=== PATIENT | male | born 1940 | race Caucasian/White ===

== ENCOUNTER 2016-12-16 15:23 | Inpatient (IN) | payer MEDICARE, OTHER ==
--- NOTE | 2016-12-16 15:30 | EDM.PDOC ---
ED HPI GENERAL MEDICAL PROBLEM - General Chief Complaint: General Stated Complaint: AMB Time Seen by Provider: 12/16/16 15:28 Source of Information: Reports: Patient, EMS, Family (), Old records, RN, RN notes reviewed History Limitations: Reports: Physical impairment (very hard of hearing) - History of Present Illness INITIAL COMMENTS - FREE TEXT/NARRATIVE: Arrives by ambulance with most of the history given by due to patient's hearing impairment. Reports increased weakness, cough, and vertigo. Onset last evening worse today. Also urinary frequency but very small quantities of urine production. Unsure of fever. Location: Reports: chest Severity: severe - Related Data Allergies Allergy/AdvReac Type Severity Reaction Status Date / Time No Known Allergies Allergy Verified 12/16/16 15:31 Home Meds: Home Meds Albuterol/Ipratropium [DuoNeb 3.0-0.5 MG/3 ML] 3 ml INH TID 09/15/14 [History] Budesonide [Pulmicort] 2 ml INH BID 09/15/14 [History] Calcium Carbonate [Calcium] 600 mg PO DAILY 09/15/14 [History] Carbidopa/Levodopa [Carbidopa-Levodopa 25-100 Tab] 2 tab PO TID 09/15/14 [ History] Cholecalciferol (Vitamin D3) [Cholecalciferol] 1 tab PO DAILY 09/15/14 [History] Cyanocobalamin (Vitamin B-12) [Vitamin B-12] 1,000 mcg INJECT .MONTHLY 09/15/14 [History] Levothyroxine 150 mcg PO DAILY 09/15/14 [History] Metoprolol Succinate [Toprol Xl] 100 mg PO DAILY 09/15/14 [History] Multivitamin [Multivitamins] 1 tab PO DAILY 09/15/14 [History] Sertraline HCl 50 mg PO DAILY 09/15/14 [History] Tamsulosin HCl 0.4 mg PO BEDTIME 09/15/14 [History] Ursodiol 500 mg PO BID 09/15/14 [History] Aspirin 81 mg PO DAILY 06/17/15 [History] Montelukast [Singulair] 1 tab PO BEDTIME 05/21/16 [History] Past Medical History HEENT History: Reports: Impaired vision Other HEENT History: WEARS BILATERAL HEARING AIDS Cardiovascular History: Reports: Hypertension Respiratory History: Reports: COPD, Pneumonia, recurrent, SOB Other Respiratory History: CHRONIC COUGH; CHRONIC AIRWAY OBSTRUCTION; UPPER RESPIRATROY INFECTION Gastrointestinal History: Reports: Chronic constipation Genitourinary History: Reports: BPH, Prostate disorder, UTI, recurrent Other Genitourinary History: LOWER URINARY TRACT INFECTION Other Musculoskeletal History: CRUSH INJURY OF RIGHT FOOT; PLANTAR FASCIITIS Neurological History: Reports: Alzheimers disease, Parkinson's Other Neuro History: DIZZINESS Endocrine/Metabolic History: Reports: Hypothyroidism Other Endocrine/Metabolic History: HYPOTHYROIDISM Hematologic History: Reports: B12 deficiency - Infectious Disease History Infectious Disease History: Reports: Chicken pox, Measles, Mumps - Past Surgical History HEENT Surgical History: Reports: Cataract surgery Social & Family History - Family History Family Medical History: Noncontributory - Tobacco Use Smoking Status *Q: Never Smoker Years of Tobacco use: 40 Packs/Tins Daily: 1 Used Tobacco, but Quit: Yes Month Tobacco Last Used: february 2009 Second Hand Smoke Exposure: No - Caffeine Use Caffeine Use: Reports: Coffee, Soda - Recreational Drug Use Recreational Drug Use: No - Living Situation & Occupation Living situation: Reports: , with spouse Occupation: retired ED ROS GENERAL - Review of Systems Review Of Systems: ROS reveals no pertinent complaints other than HPI. ED EXAM, GENERAL - Physical Exam Exam: See Below Exam Limited By: Other (hearing impairment) General Appearance: other (chronically ill appearing) Eye Exam: bilateral eye: normal inspection Ears: other (hearing aides) Nose: other Throat/Mouth: Other (dryoral membranes.) Head: atraumatic, normocephalic Neck: normal inspection, supple, non-tender, full range of motion Cardiovascular: regular rate, rhythm (with occasional extra beat.), other ( decreased breath sounds at bilateral bases with scattered wheezes, course rhonchi at left base. ) GI/Abdominal: normal bowel sounds, soft, non tender, no organomegaly, no distention, no abnormal bruit, no mass (Male) Exam: Deferred Rectal (Males) Exam: Deferred Back Exam: normal inspection, full range of motion, NT Extremities: normal inspection, normal range of motion, non-tender, normal capillary refill, no pedal edema Neurological: other (chronic stable Parkinsons tremor, ataxia and generalized weakness. ) Psychiatric: normal affect, normal mood Skin Exam: Warm, Dry, Intact, Normal color, No rash EKG INTERPRETATION EKG Date: 12/16/16 Time: 15:59 Rhythm: other (sinus rhythm) Rate (beats/min): 78 [place]: normal P-wave: present (low amplitude P wave) QRS: other (RBBB and ventricular premature complex) ST-T: normal QT: normal Comparison: NA - no prior EKG Course - Vital Signs Last Recorded V/S: Last Vital Signs Temp 36.7 C 12/16/16 15:27 Pulse 76 12/16/16 15:27 Resp 20 12/16/16 15:27 BP 115/52 L 12/16/16 15:27 Pulse Ox 95 12/16/16 15:27 - Orders/Labs/Meds Orders: Active Orders 24 hr Category Date Time Status EKG 12 Lead [EKG Documentation Completion] [RC] STAT Care 12/16/16 16:10 Active Insert Moreira Catheter [Insert Urinary Catheter] [OM.PC] Care 12/16/16 17:30 Ordered Q24H Peripheral IV Care [RC] . DIRECTED Care 12/16/16 16:14 Active RT Aerosol Therapy [RC] ASDIRECTED Care 12/16/16 16:15 Active Urinary Catheter Assessment [RC] ASDIRECTED Care 12/16/16 17:16 Active CULTURE BLOOD [BC] Stat Lab 12/16/16 17:04 Ordered CULTURE BLOOD [BC] Stat Lab 12/16/16 17:04 Ordered LACTIC ACID [CHEM] Stat Lab 12/16/16 17:04 Ordered UA W/MICROSCOPIC [URIN] Stat Lab 12/16/16 16:11 Uncollected Levofloxacin/Dextrose 5%-Water [Levaquin in D5W 500 MG/ Med 12/16/16 17:04 Active 100 ML] 500 mg Premix Bag 1 bag IV ONETIME Sodium Chloride 0.9% [Saline Flush] Med 12/16/16 16:14 Active 10 ml FLUSH ASDIRECTED PRN Blood Culture x2 Reflex Set [OM.PC] Stat Oth 12/16/16 17:04 Ordered Peripheral IV Insertion Adult [OM.PC] Stat Oth 12/16/16 16:10 Ordered Medication Orders Levofloxacin/Dextrose 500 mg/ (Premix) 100 mls @ 100 mls/hr IV ONETIME ONE Stop: 12/16/16 18:03 Sodium Chloride (Saline Flush) 10 ml FLUSH ASDIRECTED PRN PRN Reason: Keep Vein Open Last Admin: 12/16/16 16:18 Dose: 10 ml Labs: Laboratory Tests 12/16/16 12/16/16 Range/Units 16:15 16:15 WBC 14.9 H (5.0-10.0) 10^3/uL RBC 4.24 L (4.6-6.2) 10^6/uL Hgb 11.5 L (14.0-18.0) g/dL Hct 35.2 L (40.0-54.0) % MCV 83.0 (80-100) fL MCH 27.1 (27.0-34.0) pg MCHC 32.7 L (33.0-35.0) g/dL Plt Count 185 (150-450) 10^3/uL Neut % (Auto) 86.2 H (42.2-75.2) % Lymph % (Auto) 5.4 L (20.5-50.1) % [place] % (Auto) 8.2 H (2-8) % Eos % (Auto) 0.0 L (1.0-3.0) % Baso % (Auto) 0.2 (0.0-1.0) % Sodium 135 (135-145) mmol/L Potassium 3.7 (3.6-5.0) mmol/L Chloride 103 (101-111) mmol/L Carbon Dioxide 23.0 (21.0-31.0) mmol/L Anion Gap 12.7 BUN 24 H (7-18) mg/dL Creatinine 1.0 (0.6-1.3) mg/dL Est Cr Clr Drug Dosing 59.67 mL/min Estimated GFR (MDRD) > 60 BUN/Creatinine Ratio 24.00 Glucose 97 (74-105) mg/dL Calcium 8.9 (8.4-10.2) mg/dl Total Bilirubin 1.2 H (0.2-1.0) mg/dL AST 31 (10-42) IU/L ALT 8 L (10-60) IU/L Alkaline Phosphatase 88 (42-121) IU/L Troponin I < 0.02 (0.00-0.02) ng/ml B-Natriuretic Peptide 186 H (0-100) pg/ml Total Protein 7.1 (6.7-8.2) g/dl Albumin 3.6 (3.2-5.5) g/dl Globulin 3.5 Albumin/Globulin Ratio 1.03 Meds: Medications Generic Name Dose Route Start Last Admin Trade Name Ramone PRN Reason Stop Dose Admin Levofloxacin/Dextrose 500 mg/ 100 mls @ 100 mls/hr 12/16/16 17:04 Premix IV 12/16/16 18:03 ONETIME ONE Sodium Chloride 10 ml 12/16/16 16:14 12/16/16 16:18 Saline Flush FLUSH 10 ml ASDIRECTED PRN Administration Keep Vein Open Discontinued Medications Generic Name Dose Route Start Last Admin Trade Name Freq PRN Reason Stop Dose Admin Albuterol/Ipratropium 3 ml 12/16/16 16:15 12/16/16 16:25 Duoneb 3.0-0.5 Mg/3 Ml NEB 12/16/16 16:16 3 ml ONETIME ONE Administration Sodium Chloride 1,000 mls @ 999 mls/hr 12/16/16 16:15 12/16/16 16:25 Normal Saline IV 12/16/16 17:15 999 mls/hr .BOLUS ONE Administration Methylprednisolone Sodium Succinate 125 mg 12/16/16 17:04 Solu-Medrol IVPUSH 12/16/16 17:05 ONETIME ONE - Radiology Interpretation Free Text/Narrative:: Chest x-ray: Left lower lobe pneumonia per rad report. Departure - Departure Time of Disposition: 17:14 (Admit to Dr. Don) Disposition: Admitted As Inpatient 67 Condition: serious Clinical Impression: Acute urinary retention Pneumonia Qualifiers: Pneumonia type: due to unspecified organism Laterality: left Lung location: lower lobe of lung Qualified Code(s): J18.1 - Lobar pneumonia, unspecified organism COPD (chronic obstructive pulmonary disease) Qualifiers: COPD type: unspecified COPD Qualified Code(s): J44.9 - Chronic obstructive pulmonary disease, unspecified Forms: ED Department Discharge - My Orders Last 24 Hours: My Active Orders 12/16/16 16:10 EKG 12 Lead [EKG Documentation Completion] [RC] STAT Peripheral IV Insertion Adult [OM.PC] Stat 12/16/16 16:11 UA W/MICROSCOPIC [URIN] Stat 12/16/16 16:14 Peripheral IV Care [RC] . DIRECTED Sodium Chloride 0.9% [Saline Flush] 10 ml FLUSH ASDIRECTED PRN 12/16/16 16:15 RT Aerosol Therapy [RC] ASDIRECTED 12/16/16 17:04 CULTURE BLOOD [BC] Stat CULTURE BLOOD [BC] Stat LACTIC ACID [CHEM] Stat Levofloxacin/Dextrose 5%-Water [Levaquin in D5W 500 MG/100 ML] 500 mg Premix Bag 1 bag IV ONETIME Blood Culture x2 Reflex Set [OM.PC] Stat 12/16/16 17:16 Urinary Catheter Assessment [RC] ASDIRECTED 12/16/16 17:30 Insert Moreira Catheter [Insert Urinary Catheter] [OM.PC] Q24H - Assessment/Plan Last 24 Hours: My Active Orders 12/16/16 16:10 EKG 12 Lead [EKG Documentation Completion] [RC] STAT Peripheral IV Insertion Adult [OM.PC] Stat 12/16/16 16:11 UA W/MICROSCOPIC [URIN] Stat 12/16/16 16:14 Peripheral IV Care [RC] . DIRECTED Sodium Chloride 0.9% [Saline Flush] 10 ml FLUSH ASDIRECTED PRN 12/16/16 16:15 RT Aerosol Therapy [RC] ASDIRECTED 12/16/16 17:04 CULTURE BLOOD [BC] Stat CULTURE BLOOD [BC] Stat LACTIC ACID [CHEM] Stat Levofloxacin/Dextrose 5%-Water [Levaquin in D5W 500 MG/100 ML] 500 mg Premix Bag 1 bag IV ONETIME Blood Culture x2 Reflex Set [OM.PC] Stat 12/16/16 17:16 Urinary Catheter Assessment [RC] ASDIRECTED 12/16/16 17:30 Insert Moreira Catheter [Insert Urinary Catheter] [OM.PC] Q24H
[2016-12-16] MEDS ORDERED: Sodium Chloride 0.9% 1,000 ML IV ONE (16:15)
[2016-12-16] MEDS ORDERED: Albuterol/Ipratropium 3.0-0.5 MG/3 ML Neb Soln NEB ONE (16:15)
[2016-12-16] MEDS: Sodium Chloride 0.9% 10 ML Syringe FLUSH PRN (16:18)
--- NOTE | 2016-12-16 16:53 | CR ---
Clinical history: 76-year-old male cough and weakness. Interpretation: Asymmetric dense new left infrahilar pneumonic like consolidation (compared 8 r 2016 exam). Normal cardiac silhouette without alveolar edema or dependent effusion. No other lung mass, hilar lymphadenopathy or focal lobar pneumonia. No pneumothorax. CONCLUSION: Left lower lobe pneumonia.
[2016-12-16 17:00] LABS: CHLORIDE,CL 103 mmol/L (101-111); SODIUM,NA 135 mmol/L (135-145)
[2016-12-16] MEDS ORDERED: Levofloxacin/Dextrose 5%-Water 500 MG in Premix Bag 1 BAG IV ONE (17:04)
[2016-12-16] MEDS ORDERED: methylPREDNISolone Sodium Succinate 125 MG/2 ML SDV IVPUSH ONE (17:04)
--- NOTE | 2016-12-16 18:46 | PCM.HP ---
H&P History of Present Illness - General Date of Service: 12/16/16 Admit Problem/Dx: Admission Diagnosis/Problem Admission Diagnosis/Problem Pneumonia Source of Information: Family History Limitations: Reports: Other (hard of hearing, history mainly supplied by the ) - History of Present Illness Initial Comments - Free Text/Narative: Mr. Fulton is a 61 year old male was brought here because of dizziness and more gait instability. Family members has been noticing this gradually however today, noticed that he is unable to sit up from chair, walking differently than usual. They described the dizziness as if he is losing his balance and denies vertigo. baseline, he ambulates with an aid of a walker. Last wednesday, patient had a fall but denies passing out. NO recent falls aside from that. lives at home with . there has been no report of any fever nor chills. Patient has chronic cough from his COPD however notice that he is expectorating more phlegm than usual. He has been wheezing as well which she reports is nothign new for him. there have been no changes on his bowel movements. however, for his urianry habits, noticed that he is needing to urinate more frequent and urgently however only a few drops was urinated. 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 - Related Data Allergies/Adverse Reactions: Allergies Allergy/AdvReac Type Severity Reaction Status Date / Time No Known Allergies Allergy Verified 12/16/16 15:31 Home Medications: Home Meds Albuterol/Ipratropium [DuoNeb 3.0-0.5 MG/3 ML] 3 ml INH TID 09/15/14 [History] Budesonide [Pulmicort] 2 ml INH BID 09/15/14 [History] Calcium Carbonate [Calcium] 600 mg PO DAILY 09/15/14 [History] Carbidopa/Levodopa [Carbidopa-Levodopa 25-100 Tab] 2 tab PO TID 09/15/14 [ History] Cholecalciferol (Vitamin D3) [Cholecalciferol] 1 tab PO DAILY 09/15/14 [History] Cyanocobalamin (Vitamin B-12) [Vitamin B-12] 1,000 mcg INJECT .MONTHLY 09/15/14 [History] Levothyroxine 150 mcg PO DAILY 09/15/14 [History] Metoprolol Succinate [Toprol Xl] 100 mg PO DAILY 09/15/14 [History] Multivitamin [Multivitamins] 1 tab PO DAILY 09/15/14 [History] Sertraline HCl 50 mg PO DAILY 09/15/14 [History] Tamsulosin HCl 0.4 mg PO BEDTIME 09/15/14 [History] Ursodiol 500 mg PO BID 09/15/14 [History] Aspirin 81 mg PO DAILY 06/17/15 [History] Montelukast [Singulair] 1 tab PO BEDTIME 05/21/16 [History] Lactulose [Chronulac] 15 ml PO DAILY 12/16/16 [History] Past Medical History HEENT History: Reports: Impaired vision Other HEENT History: WEARS BILATERAL HEARING AIDS Cardiovascular History: Reports: Hypertension Respiratory History: Reports: COPD, Pneumonia, recurrent, SOB Other Respiratory History: CHRONIC COUGH; CHRONIC AIRWAY OBSTRUCTION; UPPER RESPIRATROY INFECTION Gastrointestinal History: Reports: Chronic constipation Genitourinary History: Reports: BPH, Prostate disorder, UTI, recurrent Other Genitourinary History: LOWER URINARY TRACT INFECTION Other Musculoskeletal History: CRUSH INJURY OF RIGHT FOOT; PLANTAR FASCIITIS Neurological History: Reports: Alzheimers disease, Parkinson's Other Neuro History: DIZZINESS Endocrine/Metabolic History: Reports: Hypothyroidism Other Endocrine/Metabolic History: HYPOTHYROIDISM Hematologic History: Reports: B12 deficiency - Infectious Disease History Infectious Disease History: Reports: Chicken pox, Measles, Mumps - Past Surgical History HEENT Surgical History: Reports: Cataract surgery Social & Family History - Family History Family Medical History: Noncontributory - Tobacco Use Smoking Status *Q: Never Smoker Years of Tobacco use: 40 Packs/Tins Daily: 1 Used Tobacco, but Quit: Yes Month Tobacco Last Used: february 2009 Second Hand Smoke Exposure: No - Caffeine Use Caffeine Use: Reports: Coffee, Soda - Recreational Drug Use Recreational Drug Use: No - Living Situation & Occupation Living situation: Reports: , with spouse Occupation: retired H&P Review of Systems - Review of Systems: Review Of Systems: See Below General: Reports: no symptoms HEENT: Reports: no symptoms Pulmonary: Reports: Wheezing, Cough Gastrointestinal: Reports: No symptoms Genitourinary: Reports: frequency, urgency Neurological: Reports: Dizziness Exam - Vital Signs Vital Signs: Last Vital Signs Temp 36.7 C 12/16/16 15:27 Pulse 76 12/16/16 15:27 Resp 20 12/16/16 15:27 BP 115/52 L 12/16/16 15:27 Pulse Ox 95 12/16/16 15:27 Weight: 80.286 kg - Exam General: alert Lungs: Decreased breath sounds, Crackles (left), Wheezing Cardiovascular: regular rate, regular rhythm Abdomen: normal bowel sounds, soft Extremities: edema (trace; compression stockings on) Neuro Extensive - Mental Status: alert, other (no gross/resting tremors; hard of hearing but can comprehend questions and answers appropriately) Psychiatric: alert - Patient Data Result Diagrams: 12/16/16 16:15 12/16/16 16:15 *Q Meaningful Use (ADM) - VTE *Q VTE Criteria *Q: - Stroke *Q Stroke Criteria *Q: - AMI *Q AMI Criteria *Q: Problem List Initiated/Reviewed/Updated: Yes Orders Last 24hrs: Active Orders 24 hr Category Date Time Status Patient Status [ADT] Routine ADT 12/16/16 18:12 Active Oxygen Therapy [RC] PRN Care 12/16/16 18:12 Active Up With Assistance [RC] ASDIRECTED Care 12/16/16 18:12 Active VTE/DVT Education [RC] PER UNIT ROUTINE Care 12/16/16 18:12 Active Vital Signs [RC] Q4H Care 12/16/16 18:12 Active OT Evaluation and Treatment [CONS] Routine Cons 12/16/16 18:12 Active PT Evaluation and Treatment [CONS] Routine Cons 12/16/16 18:12 Active BASIC METABOLIC PANEL,BMP [CHEM] Routine Lab 12/17/16 06:00 Ordered CBC WITH AUTO DIFF [HEME] Routine Lab 12/17/16 06:00 Ordered Aspirin Med 12/17/16 09:00 Ordered 81 mg PO DAILY Budesonide [Pulmicort] Med 12/16/16 21:00 Ordered DOSE mg INH BID Calcium Carbonate Med 12/17/16 09:00 Ordered 600 mg PO DAILY Carbidopa/Levodopa [Sinemet 25-100 mg] Med 12/16/16 21:00 Ordered 2 tab PO TID Lactulose [Chronulac] Med 12/17/16 09:00 Active 10 gm PO DAILY Levothyroxine Med 12/17/16 09:00 Ordered 150 mcg PO DAILY Metoprolol Succinate [Toprol Xl] Med 12/17/16 09:00 Ordered 100 mg PO DAILY Montelukast [Singulair] Med 12/16/16 21:00 Ordered DOSE mg PO BEDTIME Tamsulosin [Flomax] Med 12/16/16 21:00 Ordered 0.4 mg PO BEDTIME Ursodiol [Ursodiol] Med 12/16/16 21:00 Ordered 500 mg PO BID Resuscitation Status Routine Resus Stat 12/16/16 18:12 Ordered Medication Orders Aspirin (Aspirin) 81 mg PO DAILY TRUPTI Budesonide (Pulmicort) mg INH BID TRUPTI Carbidopa/Levodopa (Sinemet 25-100 Mg) 2 tab PO TID TRUPTI Lactulose (Chronulac) 10 gm PO DAILY TRUPTI Levothyroxine Sodium (Levothyroxine) 150 mcg PO DAILY TRUPTI Montelukast Sodium (Singulair) mg PO BEDTIME TRUPTI Non-Formulary Medication (Calcium Carbonate) 600 mg PO DAILY TRUPTI Non-Formulary Medication (Metoprolol Succinate [Toprol Xl]) 100 mg PO DAILY TRUPTI Non-Formulary Medication (Ursodiol [Ursodiol]) 500 mg PO BID TRUPTI Sodium Chloride (Saline Flush) 10 ml FLUSH ASDIRECTED PRN PRN Reason: Keep Vein Open Last Admin: 12/16/16 16:18 Dose: 10 ml Tamsulosin HCl (Flomax) 0.4 mg PO BEDTIME [facility] Assessment/Plan Comment:: Left lower lobe pneumonia - blood cultures drawn in the ER, follow up - start on ceftriaxone and azithromycin - nebulization - incentive spirometry and flutter valve - sputum culture COPD - patient is usually on nocturnal oxygen supplementation - start solumedrol: loading dose and will be followed by 40mg every 8 hours - nebulizations every 4 hours [facility] Gait instability/recent fall - PT/OT consult Parkinson's - resume carbidopa DVT prophylaxis: lovenox COde status: DNR
[2016-12-16] MEDS: cefTRIAXone 1 GM in Sodium Chloride 0.9% 50 ML IV SCH (20:38)
[2016-12-16] MEDS ORDERED: Non-Formulary Medication 1 Each (Ursodiol [Ursodiol] 500 MG) PO SCH (21:00)
[2016-12-16] MEDS ORDERED: Carbidopa/Levodopa 25-100 MG Tab PO SCH ×2 (21:00)
[2016-12-16] MEDS: Azithromycin 500 MG in Sodium Chloride 0.9% 250 ML IV SCH (21:18)
[2016-12-16] MEDS: Budesonide 0.5 MG/2 ML Neb Susp INH SCH (22:14)
[2016-12-16] MEDS: Montelukast 10 MG Tab PO SCH (22:14)
[2016-12-16] MEDS: Albuterol/Ipratropium 3.0-0.5 MG/3 ML Neb Soln NEB SCH (22:14)
[2016-12-16] MEDS: Tamsulosin 0.4 MG Cap.ER PO SCH (22:14)
[2016-12-16] MEDS: Carbidopa/Levodopa 25-250 MG Tab PO SCH (22:35)
[2016-12-17] MEDS: methylPREDNISolone Sodium Succinate 40 MG/1 ML SDV IVPUSH SCH ×4 (00:38→23:40)
[2016-12-17] MEDS: Albuterol/Ipratropium 3.0-0.5 MG/3 ML Neb Soln NEB SCH ×6 (03:45→21:59)
[2016-12-17] MEDS: Levothyroxine 150 MCG Tab PO SCH (06:07)
[2016-12-17 07:24] LABS: CHLORIDE,CL 107 mmol/L (101-111); SODIUM,NA 136 mmol/L (135-145)
[2016-12-17] MEDS: Calcium Carbonate 500 MG Tab.Chew PO SCH (08:40)
[2016-12-17] MEDS: Metoprolol Succinate 50 MG Tab.ER PO SCH (08:40)
[2016-12-17] MEDS: Carbidopa/Levodopa 25-250 MG Tab PO SCH ×3 (08:43→17:41)
[2016-12-17] MEDS: Sodium Chloride 0.9% 10 ML Syringe FLUSH PRN ×2 (08:46→17:42)
[2016-12-17] MEDS ORDERED: Aspirin 81 MG Tab.Chew PO SCH (09:00)
[2016-12-17] MEDS ORDERED: URSODIOL 500 MG PO SCH ×2 (09:00)
[2016-12-17] MEDS ORDERED: Lactulose Soln 10 GM/15 ML 946 ML Bottle PO SCH (09:00)
[2016-12-17] MEDS: Lactulose Soln 10 GM/15 ML 30 ML UD Cup PO SCH (10:09)
[2016-12-17] MEDS: Budesonide 0.5 MG/2 ML Neb Susp INH SCH ×2 (10:10→21:59)
[2016-12-17] MEDS: Aspirin 81 MG Tab.Chew PO SCH (10:10)
--- NOTE | 2016-12-17 10:11 | PCM.PN ---
- General Info Date of Service: 12/17/16 Admission Dx/Problem (Free Text): Admission Diagnosis/Problem Admission Diagnosis/Problem Pneumonia Subjective Update: feeding well, feeling stronger Has coughing, no associated fever or chills feels stronger today, minimal tremors No other known pain, no chest pain Off oxygen - Review of Systems General: Reports: Weakness (But improved). Denies: Fever Pulmonary: Reports: shortness of breath (mild to moderate), cough, sputum. Denies: wheezing Cardiovascular: Reports: Edema (trace). Denies: Chest Pain Neurological: Denies: Confusion - Patient Data Vitals - most recent: Last Vital Signs Temp 36.5 C 12/17/16 07:00 Pulse 68 12/17/16 08:40 Resp 20 12/17/16 07:00 BP 128/62 12/17/16 08:40 Pulse Ox 98 12/17/16 07:00 Weight - most recent: 80.286 kg I&O - last 24 hours: Intake & Output 12/16/16 12/17/16 12/17/16 22:59 06:59 14:59 Intake Total 398 560 Output Total 1475 Balance 398 -915 Lab Results last 24 hrs: Laboratory Results - last 24 hr 12/17/16 12/17/16 Range/Units 06:55 06:55 WBC 10.1 H (5.0-10.0) 10^3/uL RBC 3.96 L (4.6-6.2) 10^6/uL Hgb 10.6 L (14.0-18.0) g/dL Hct 33.5 L (40.0-54.0) % MCV 84.6 (80-100) fL MCH 26.8 L (27.0-34.0) pg MCHC 31.6 L (33.0-35.0) g/dL Plt Count 148 L (150-450) 10^3/uL Neut % (Auto) 91.0 H (42.2-75.2) % Lymph % (Auto) 5.0 L (20.5-50.1) % [place] % (Auto) 3.9 (2-8) % Eos % (Auto) 0.0 L (1.0-3.0) % Baso % (Auto) 0.1 (0.0-1.0) % Sodium 136 (135-145) mmol/L Potassium 4.0 (3.6-5.0) mmol/L Chloride 107 (101-111) mmol/L Carbon Dioxide 22.0 (21.0-31.0) mmol/L Anion Gap 11.0 BUN 22 H (7-18) mg/dL Creatinine 0.9 (0.6-1.3) mg/dL Est Cr Clr Drug Dosing 66.30 mL/min Estimated GFR (MDRD) > 60 Glucose 166 H (74-105) mg/dL Calcium 8.6 (8.4-10.2) mg/dl Med Orders - Current: Current Medications Albuterol/Ipratropium (Duoneb 3.0-0.5 Mg/3 Ml) 3 ml NEB Q4HRRT [facility] Last Admin: 12/17/16 03:45 Dose: 3 ml Aspirin (Aspirin) 81 mg PO Q48H [facility] Budesonide (Pulmicort) 0.5 mg INH BID [facility] Last Admin: 12/16/16 22:14 Dose: 0.5 mg Calcium Carbonate/Glycine (Tums) 500 mg PO DAILY [facility] Last Admin: 12/17/16 08:40 Dose: 500 mg Carbidopa/Levodopa (Sinemet 25-250 Mg) 1 tab PO TIDMEALS [facility] Last Admin: 12/17/16 08:43 Dose: 1 tab Ceftriaxone Sodium 1 gm/ (Sodium Chloride) 50 mls @ 100 mls/hr IV Q24H [facility] Last Admin: 12/16/16 20:38 Dose: 100 mls/hr Azithromycin 500 mg/ Sodium (Chloride) 250 mls @ 250 mls/hr IV Q24H [facility] Last Admin: 12/16/16 21:18 Dose: 250 mls/hr Insulin Aspart (Novolog) 0 unit SUBCUT QIDACANDBED [facility] PRN Reason: Protocol Lactulose (Cephulac) 10 gm PO DAILY [facility] Levothyroxine Sodium (Levothyroxine) 150 mcg PO ACBRK [facility] Last Admin: 12/17/16 06:07 Dose: 150 mcg Methylprednisolone Sodium Succinate (Solu-Medrol) 40 mg IVPUSH Q8H [facility] Last Admin: 12/17/16 08:43 Dose: 40 mg Metoprolol Succinate (Toprol Xl) 100 mg PO DAILY [facility] Last Admin: 12/17/16 08:40 Dose: 100 mg Montelukast Sodium (Singulair) 10 mg PO BEDTIME [facility] Last Admin: 12/16/16 22:14 Dose: 10 mg Sodium Chloride (Saline Flush) 10 ml FLUSH ASDIRECTED PRN PRN Reason: Keep Vein Open Last Admin: 12/17/16 08:46 Dose: 10 ml Tamsulosin HCl (Flomax) 0.4 mg PO BEDTIME [facility] Last Admin: 12/16/16 22:14 Dose: 0.4 mg Discontinued Medications Albuterol/Ipratropium (Duoneb 3.0-0.5 Mg/3 Ml) 3 ml NEB ONETIME ONE Stop: 12/16/16 16:16 Last Admin: 12/16/16 16:25 Dose: 3 ml Aspirin (Aspirin) 81 mg PO DAILY [facility] Carbidopa/Levodopa (Sinemet 25-100 Mg) 2 tab PO TID [facility] Last Admin: 12/16/16 22:32 Dose: Not Given Carbidopa/Levodopa (Sinemet 25-100 Mg) 1 tab PO TIDMEALS [facility] Last Admin: 12/16/16 22:32 Dose: Not Given Sodium Chloride (Normal Saline) 1,000 mls @ 999 mls/hr IV .BOLUS ONE Stop: 12/16/16 17:15 Last Admin: 12/16/16 16:25 Dose: 999 mls/hr Levofloxacin/Dextrose 500 mg/ (Premix) 100 mls @ 100 mls/hr IV ONETIME ONE Stop: 12/16/16 18:03 Last Admin: 12/16/16 17:49 Dose: 100 mls/hr Lactulose (Chronulac) 10 gm PO DAILY [facility] Methylprednisolone Sodium Succinate (Solu-Medrol) 125 mg IVPUSH ONETIME ONE Stop: 12/16/16 17:05 Last Admin: 12/16/16 17:49 Dose: 125 mg Non-Formulary Medication (Ursodiol [Ursodiol]) 500 mg PO BID [facility] Last Admin: 12/16/16 22:32 Dose: Not Given Ursodiol 500 Mg Tab (Own Med) 0 each PO DAILY [facility] Ursodilol 500mg (Own Med) 1 each PO DAILY [facility] - Exam Quality Assessment: No: supplemental oxygen General: alert, oriented Neck: supple Lungs: Normal respiratory effort, Decreased breath sounds. No: Rales, Rhonchi, Wheezing Cardiovascular: Regular Rate, Regular Rhythm Abdomen: bowel sounds present, soft, no tenderness Extremities: edema (trace bilateral) - Problem List & Annotations (1) Pneumonia SNOMED Code(s): 674824764 Code(s): J18.9 - PNEUMONIA, UNSPECIFIED ORGANISM Status: Acute Current Visit: Yes Qualifiers: Pneumonia type: due to unspecified organism Laterality: left Lung location: lower lobe of lung Qualified Code(s): J18.1 - Lobar pneumonia, unspecified organism (2) History of Parkinson's disease SNOMED Code(s): 586044578 Code(s): Z86.69 - PERSONAL HISTORY OF DIS OF THE NERVOUS SYS AND SENSE ORGANS Status: Acute Current Visit: No - Problem List Review Problem List Initiated/Reviewed/Updated: Yes - My Orders Last 24 Hours: My Active Orders 12/16/16 22:30 Carbidopa/Levodopa [Sinemet 25-250 mg] 1 tab PO TIDMEALS 12/17/16 08:00 Aspirin 81 mg PO Q48H 12/17/16 10:04 Glucose [Blood Glucose Check, Bedside] [RC] QIDACANDBED 12/17/16 11:00 Insulin Aspart [NovoLOG] See Protocol SUBCUT QIDACANDBED - Plan Plan:: Left lower lobe pneumonia - blood cultures: pending - sputum culture: pending - continue on ceftriaxone and azithromycin - nebulization - incentive spirometry and flutter valve COPD with acute exacerbation - patient is usually on nocturnal oxygen supplementation - started iv solumedrol: we'll slowly taper - nebulizations every 4 hours piper hyperglycemia - Likely secondary to steroids with baseline impaired glucose tolerance - Follow blood sugars, use supplemental insulin and hypoglycemia protocol as needed Gait instability/recent fall - PT/OT consult Parkinson's - resume carbidopa DVT prophylaxis: lovenox COde status: DNR discussed with Dr. Don
[2016-12-17] MEDS: Insulin Aspart 100 Units/ML 3 ML Pen SUBCUT SCH ×3 (12:53→21:59)
[2016-12-17] MEDS: cefTRIAXone 1 GM in Sodium Chloride 0.9% 50 ML IV SCH (20:08)
[2016-12-17] MEDS: Azithromycin 500 MG in Sodium Chloride 0.9% 250 ML IV SCH (20:49)
[2016-12-17] MEDS: Tamsulosin 0.4 MG Cap.ER PO SCH (21:59)
[2016-12-17] MEDS: Montelukast 10 MG Tab PO SCH (21:59)
[2016-12-18] MEDS: Albuterol/Ipratropium 3.0-0.5 MG/3 ML Neb Soln NEB SCH ×6 (03:47→22:51)
[2016-12-18] MEDS: Levothyroxine 150 MCG Tab PO SCH (06:10)
[2016-12-18 07:14] LABS: CHLORIDE,CL 108 mmol/L (101-111); SODIUM,NA 139 mmol/L (135-145)
[2016-12-18] MEDS: Insulin Aspart 100 Units/ML 3 ML Pen SUBCUT SCH ×4 (08:17→22:36)
[2016-12-18] MEDS: Metoprolol Succinate 50 MG Tab.ER PO SCH (08:24)
[2016-12-18] MEDS: Calcium Carbonate 500 MG Tab.Chew PO SCH (08:24)
[2016-12-18] MEDS: Carbidopa/Levodopa 25-250 MG Tab PO SCH ×3 (08:25→17:58)
[2016-12-18] MEDS: methylPREDNISolone Sodium Succinate 40 MG/1 ML SDV IVPUSH SCH ×2 (08:25→18:00)
[2016-12-18] MEDS: Lactulose Soln 10 GM/15 ML 30 ML UD Cup PO SCH (08:26)
[2016-12-18] MEDS: Sodium Chloride 0.9% 10 ML Syringe FLUSH PRN ×3 (08:27→21:19)
[2016-12-18] MEDS: Budesonide 0.5 MG/2 ML Neb Susp INH SCH ×2 (10:03→22:51)
--- NOTE | 2016-12-18 10:08 | PCM.PN ---
- General Info Date of Service: 12/18/16 Admission Dx/Problem (Free Text): Admission Diagnosis/Problem Admission Diagnosis/Problem Pneumonia Subjective Update: feeding ok, working with physical therapy Has coughing, no associated fever or chills continue to have tremors No other pain, no chest pain Off oxygen no fever, chills Still has indwelling urinary catheter present - Review of Systems General: Reports: Weakness. Denies: Fever Pulmonary: Reports: cough. Denies: shortness of breath, sputum Cardiovascular: Denies: Chest Pain Gastrointestinal: Denies: Abdominal pain Genitourinary: Reports: other (catheter) Neurological: Denies: Confusion - Patient Data Vitals - most recent: Last Vital Signs Temp 36.8 C 12/18/16 07:00 Pulse 72 12/18/16 08:24 Resp 20 12/18/16 07:00 BP 111/55 L 12/18/16 08:24 Pulse Ox 98 12/18/16 07:00 Weight - most recent: 80.286 kg I&O - last 24 hours: Intake & Output 12/17/16 12/18/16 12/18/16 22:59 06:59 14:59 Intake Total 695 100 Output Total 1200 475 Balance -505 -375 Lab Results last 24 hrs: Laboratory Results - last 24 hr 12/17/16 12/17/16 12/17/16 Range/Units 12:36 17:04 21:07 WBC (5.0-10.0) 10^3/uL RBC (4.6-6.2) 10^6/uL Hgb (14.0-18.0) g/dL Hct (40.0-54.0) % MCV (80-100) fL MCH (27.0-34.0) pg MCHC (33.0-35.0) g/dL Plt Count (150-450) 10^3/uL Neut % (Auto) (42.2-75.2) % Lymph % (Auto) (20.5-50.1) % [place] % (Auto) (2-8) % Eos % (Auto) (1.0-3.0) % Baso % (Auto) (0.0-1.0) % Sodium (135-145) mmol/L Potassium (3.6-5.0) mmol/L Chloride (101-111) mmol/L Carbon Dioxide (21.0-31.0) mmol/L Anion Gap BUN (7-18) mg/dL Creatinine (0.6-1.3) mg/dL Est Cr Clr Drug Dosing mL/min Estimated GFR (MDRD) Glucose (74-105) mg/dL POC Glucose 152 H 150 H 157 H (83-110) mg/dl Calcium (8.4-10.2) mg/dl 12/18/16 12/18/16 12/18/16 Range/Units 06:28 06:28 07:52 WBC 11.4 H (5.0-10.0) 10^3/uL RBC 3.94 L (4.6-6.2) 10^6/uL Hgb 10.6 L (14.0-18.0) g/dL Hct 33.8 L (40.0-54.0) % MCV 85.8 (80-100) fL MCH 26.9 L (27.0-34.0) pg MCHC 31.4 L (33.0-35.0) g/dL Plt Count 182 (150-450) 10^3/uL Neut % (Auto) 89.7 H (42.2-75.2) % Lymph % (Auto) 4.7 L (20.5-50.1) % [place] % (Auto) 5.6 (2-8) % Eos % (Auto) 0.0 L (1.0-3.0) % Baso % (Auto) 0.0 (0.0-1.0) % Sodium 139 (135-145) mmol/L Potassium 4.1 (3.6-5.0) mmol/L Chloride 108 (101-111) mmol/L Carbon Dioxide 23.0 (21.0-31.0) mmol/L Anion Gap 12.1 BUN 29 H (7-18) mg/dL Creatinine 1.0 (0.6-1.3) mg/dL Est Cr Clr Drug Dosing 59.67 mL/min Estimated GFR (MDRD) > 60 Glucose 142 H (74-105) mg/dL POC Glucose 146 H (83-110) mg/dl Calcium 9.1 (8.4-10.2) mg/dl Med Orders - Current: Current Medications Albuterol/Ipratropium (Duoneb 3.0-0.5 Mg/3 Ml) 3 ml NEB Q4HRRT [facility] Last Admin: 12/18/16 07:19 Dose: 3 ml Aspirin (Aspirin) 81 mg PO Q48H [facility] Last Admin: 12/17/16 10:10 Dose: 81 mg Budesonide (Pulmicort) 0.5 mg INH BID [facility] Last Admin: 12/18/16 10:03 Dose: 0.5 mg Calcium Carbonate/Glycine (Tums) 500 mg PO DAILY [facility] Last Admin: 12/18/16 08:24 Dose: 500 mg Carbidopa/Levodopa (Sinemet 25-250 Mg) 1 tab PO TIDMEALS [facility] Last Admin: 12/18/16 08:25 Dose: 1 tab Ceftriaxone Sodium 1 gm/ (Sodium Chloride) 50 mls @ 100 mls/hr IV Q24H [facility] Last Admin: 12/17/16 20:08 Dose: 100 mls/hr Azithromycin 500 mg/ Sodium (Chloride) 250 mls @ 250 mls/hr IV Q24H [facility] Last Admin: 12/17/16 20:49 Dose: 250 mls/hr Insulin Aspart (Novolog) 0 unit SUBCUT QIDACANDBED [facility] PRN Reason: Protocol Last Admin: 12/18/16 08:17 Dose: Not Given Lactulose (Cephulac) 10 gm PO DAILY [facility] Last Admin: 12/18/16 08:26 Dose: 10 gm Levothyroxine Sodium (Levothyroxine) 150 mcg PO ACBRK [facility] Last Admin: 12/18/16 06:10 Dose: 150 mcg Methylprednisolone Sodium Succinate (Solu-Medrol) 40 mg IVPUSH Q8H [facility] Last Admin: 12/18/16 08:25 Dose: 40 mg Metoprolol Succinate (Toprol Xl) 100 mg PO DAILY [facility] Last Admin: 12/18/16 08:24 Dose: 100 mg Montelukast Sodium (Singulair) 10 mg PO BEDTIME [facility] Last Admin: 12/17/16 21:59 Dose: 10 mg Sodium Chloride (Saline Flush) 10 ml FLUSH ASDIRECTED PRN PRN Reason: Keep Vein Open Last Admin: 12/18/16 08:27 Dose: 10 ml Tamsulosin HCl (Flomax) 0.4 mg PO BEDTIME [facility] Last Admin: 12/17/16 21:59 Dose: 0.4 mg Discontinued Medications Albuterol/Ipratropium (Duoneb 3.0-0.5 Mg/3 Ml) 3 ml NEB ONETIME ONE Stop: 12/16/16 16:16 Last Admin: 12/16/16 16:25 Dose: 3 ml Aspirin (Aspirin) 81 mg PO DAILY [facility] Carbidopa/Levodopa (Sinemet 25-100 Mg) 2 tab PO TID [facility] Last Admin: 12/16/16 22:32 Dose: Not Given Carbidopa/Levodopa (Sinemet 25-100 Mg) 1 tab PO TIDMEALS [facility] Last Admin: 12/16/16 22:32 Dose: Not Given Sodium Chloride (Normal Saline) 1,000 mls @ 999 mls/hr IV .BOLUS ONE Stop: 12/16/16 17:15 Last Admin: 12/16/16 16:25 Dose: 999 mls/hr Levofloxacin/Dextrose 500 mg/ (Premix) 100 mls @ 100 mls/hr IV ONETIME ONE Stop: 12/16/16 18:03 Last Admin: 12/16/16 17:49 Dose: 100 mls/hr Lactulose (Chronulac) 10 gm PO DAILY [facility] Last Admin: 12/17/16 10:15 Dose: Not Given Methylprednisolone Sodium Succinate (Solu-Medrol) 125 mg IVPUSH ONETIME ONE Stop: 12/16/16 17:05 Last Admin: 12/16/16 17:49 Dose: 125 mg Non-Formulary Medication (Ursodiol [Ursodiol]) 500 mg PO BID [facility] Last Admin: 12/16/16 22:32 Dose: Not Given Ursodiol 500 Mg Tab (Own Med) 0 each PO DAILY [facility] Ursodilol 500mg (Own Med) 1 each PO DAILY [facility] - Exam Quality Assessment: No: supplemental oxygen General: alert, oriented Neck: supple Lungs: Normal respiratory effort, Decreased breath sounds Cardiovascular: Regular Rate, Regular Rhythm Abdomen: bowel sounds present, soft, no tenderness Extremities: no edema - Problem List & Annotations (1) Pneumonia SNOMED Code(s): 662393595 Code(s): J18.9 - PNEUMONIA, UNSPECIFIED ORGANISM Status: Acute Current Visit: Yes Qualifiers: Pneumonia type: due to unspecified organism Laterality: left Lung location: lower lobe of lung Qualified Code(s): J18.1 - Lobar pneumonia, unspecified organism (2) History of Parkinson's disease SNOMED Code(s): 202447640 Code(s): Z86.69 - PERSONAL HISTORY OF DIS OF THE NERVOUS SYS AND SENSE ORGANS Status: Acute Current Visit: No - Problem List Review Problem List Initiated/Reviewed/Updated: Yes - My Orders Last 24 Hours: My Active Orders 12/17/16 10:04 Glucose [Blood Glucose Check, Bedside] [RC] QIDACANDBED 12/17/16 11:00 Insulin Aspart [NovoLOG] See Protocol SUBCUT QIDACANDBED 12/19/16 05:15 BASIC METABOLIC PANEL,BMP [CHEM] AM CBC WITH AUTO DIFF [HEME] AM - Plan Plan:: Left lower lobe pneumonia - blood cultures: neg for now - sputum culture: pending - continue on ceftriaxone and azithromycin - cont nebulization - incentive spirometry and flutter valve COPD with acute exacerbation - patient is usually on nocturnal oxygen supplementation - started iv solumedrol: we'll further taper - leukocytosis is likely due to the steroids - nebulizations every 4 hours piper hyperglycemia - Likely secondary to steroids with baseline impaired glucose tolerance - Follow blood sugars, use supplemental insulin and hypoglycemia protocol as needed Gait instability/recent fall - PT/OT to follow Parkinson's - continue carbidopa urinary retention - Will try to remove Moreira catheter today, follow urine output DVT prophylaxis: lovenox COde status: DNR
[2016-12-18] MEDS ORDERED: cefTRIAXone 1 GM in Sodium Chloride 0.9% 50 ML IV SCH (20:00)
[2016-12-18] MEDS: Azithromycin 500 MG in Sodium Chloride 0.9% 250 ML IV SCH (22:04)
[2016-12-18] MEDS: Montelukast 10 MG Tab PO SCH (22:50)
[2016-12-18] MEDS: Tamsulosin 0.4 MG Cap.ER PO SCH (22:51)
[2016-12-19] MEDS: Albuterol/Ipratropium 3.0-0.5 MG/3 ML Neb Soln NEB SCH ×3 (03:39→11:36)
[2016-12-19] MEDS: Levothyroxine 150 MCG Tab PO SCH (05:50)
[2016-12-19] MEDS: methylPREDNISolone Sodium Succinate 40 MG/1 ML SDV IVPUSH SCH (05:51)
[2016-12-19 07:17] LABS: CHLORIDE,CL 106 mmol/L (101-111); SODIUM,NA 136 mmol/L (135-145)
[2016-12-19] MEDS: Insulin Aspart 100 Units/ML 3 ML Pen SUBCUT SCH ×2 (07:48→12:58)
[2016-12-19] MEDS: Carbidopa/Levodopa 25-250 MG Tab PO SCH ×2 (08:29→12:57)
[2016-12-19] MEDS: Aspirin 81 MG Tab.Chew PO SCH (08:29)
[2016-12-19] MEDS: Metoprolol Succinate 50 MG Tab.ER PO SCH (08:29)
[2016-12-19] MEDS: Lactulose Soln 10 GM/15 ML 30 ML UD Cup PO SCH (08:30)
[2016-12-19] MEDS: Calcium Carbonate 500 MG Tab.Chew PO SCH (08:30)
[2016-12-19] MEDS: Sodium Chloride 0.9% 10 ML Syringe FLUSH PRN (08:33)
--- NOTE | 2016-12-19 11:29 | PCM.DCSUM1 ---
Discharge Summary - Hospital Course Free Text/Narrative:: Left lower lobe pneumonia - blood cultures: neg for now - sputum culture: pending - treated with ceftriaxone and azithromycin, incentive spirometry and flutter valve - finish antibiotic treatment with oral levofloxacin COPD with acute exacerbation - patient is usually on nocturnal oxygen supplementation - treated with solumedrol, pulmicort, duonebs - improved, cont tapering steroids hyperglycemia, impaired glucose tolerance - Likely secondary to steroids with baseline impaired glucose tolerance - Follow blood sugars as out patient periodically Parkinson's - continue carbidopa urinary retention - was requiring a Moreira catheter for for a short period. Removed by a discharge - Discharge Data Discharge Date: 12/19/16 Discharge Disposition: Home, Self-Care 01 Condition: Good - Discharge Diagnosis/Problem(s) (1) Pneumonia SNOMED Code(s): 533997424 ICD Code: J18.9 - PNEUMONIA, UNSPECIFIED ORGANISM Status: Acute Current Visit: Yes Qualifiers: Pneumonia type: due to unspecified organism Laterality: left Lung location: lower lobe of lung Qualified Code(s): J18.1 - Lobar pneumonia, unspecified organism (2) History of Parkinson's disease SNOMED Code(s): 473427644 ICD Code: Z86.69 - PERSONAL HISTORY OF DIS OF THE NERVOUS SYS AND SENSE ORGANS Status: Acute Current Visit: No - Patient Summary/Data Consults: Consultations 12/16/16 18:12 OT Evaluation and Treatment [CONS] Routine PT Evaluation and Treatment [CONS] Routine - Patient Instructions Diet: Heart Healthy Diet Activity: As Tolerated - Discharge Plan Prescriptions/Med Rec: Levofloxacin 500 mg PO DAILY #7 tablet Prednisone [IJD: Prednisone] 10 mg PO DAILY #22 tab Home Medications: Home Meds Albuterol/Ipratropium [DuoNeb 3.0-0.5 MG/3 ML] 3 ml NEB TID 09/15/14 [History] Budesonide [Pulmicort] 2 ml NEB BID 09/15/14 [History] Calcium Carbonate [Calcium] 600 mg PO DAILY 09/15/14 [History] Cholecalciferol (Vitamin D3) [Cholecalciferol] 1 tab PO DAILY 09/15/14 [History] Cyanocobalamin (Vitamin B-12) [Vitamin B-12] 1,000 mcg INJECT .MONTHLY 09/15/14 [History] Levothyroxine 150 mcg PO DAILY 09/15/14 [History] Metoprolol Succinate [Toprol Xl] 100 mg PO DAILY 09/15/14 [History] Multivitamin [Multivitamins] 1 tab PO DAILY 09/15/14 [History] Sertraline HCl 50 mg PO DAILY 09/15/14 [History] Tamsulosin HCl 0.4 mg PO BEDTIME 09/15/14 [History] Ursodiol 500 mg PO DAILY 09/15/14 [History] Aspirin 81 mg PO Q48H 06/17/15 [History] Montelukast [Singulair] 1 tab PO BEDTIME 05/21/16 [History] Carbidopa/Levodopa [Sinemet 25-250 mg] 1 tab PO TIDM 12/16/16 [History] Cholecalciferol (Vitamin D3) [Vitamin D3] 1,000 units PO DAILY 12/16/16 [History ] Lactulose [Chronulac] 15 ml PO DAILY 12/16/16 [History] Levofloxacin 500 mg PO DAILY #7 tablet 12/19/16 [Rx] Prednisone [IJD: Prednisone] 10 mg PO DAILY #22 tab 12/19/16 [Rx] Patient Handouts: Chronic Obstructive Pulmonary Disease Exacerbation, Easy-to- Read, Parkinson Disease, [id number], Atelectasis, Adult, Acute Urinary Retention, Male, [id number] Referrals: PCP,Unobtain [Ordering Only Provider] - (dr. Hamilton in 3-4 days) - Discharge Summary/Plan Comment DC Time >30 min.: No - General Info Date of Service: 12/19/16 - Review of Systems General: Reports: Weakness (improved). Denies: Fever Pulmonary: Denies: shortness of breath, cough Cardiovascular: Denies: Chest Pain Gastrointestinal: Denies: Abdominal pain Genitourinary: Reports: retention (resolved) Neurological: Denies: Confusion - Patient Data Vitals - Most Recent: Last Vital Signs Temp 36.6 C 12/19/16 07:00 Pulse 77 12/19/16 08:29 Resp 20 12/19/16 07:00 BP 137/68 12/19/16 08:29 Pulse Ox 94 L 12/19/16 08:10 Weight - Most Recent: 80.286 kg I&O - Last 24 hours: Intake & Output 12/18/16 12/19/1612/19/17 22:59 06:59 14:59 Intake Total 1040 248 Output Total 910 750 300 Balance 130 -502 -300 Lab Results - Last 24 hrs: Laboratory Results - last 24 hr 12/18/16 12/18/16 12/18/16 Range/Units 11:24 16:45 21:24 WBC (5.0-10.0) 10^3/uL RBC (4.6-6.2) 10^6/uL Hgb (14.0-18.0) g/dL Hct (40.0-54.0) % MCV (80-100) fL MCH (27.0-34.0) pg MCHC (33.0-35.0) g/dL Plt Count (150-450) 10^3/uL Neut % (Auto) (42.2-75.2) % Lymph % (Auto) (20.5-50.1) % [place] % (Auto) (2-8) % Eos % (Auto) (1.0-3.0) % Baso % (Auto) (0.0-1.0) % Sodium (135-145) mmol/L Potassium (3.6-5.0) mmol/L Chloride (101-111) mmol/L Carbon Dioxide (21.0-31.0) mmol/L Anion Gap BUN (7-18) mg/dL Creatinine (0.6-1.3) mg/dL Est Cr Clr Drug Dosing mL/min Estimated GFR (MDRD) Glucose (74-105) mg/dL POC Glucose 142 H 113 H 142 H (83-110) mg/dl Calcium (8.4-10.2) mg/dl 12/19/16 12/19/16 12/19/16 Range/Units 06:25 06:25 07:42 WBC 9.2 (5.0-10.0) 10^3/uL RBC 3.72 L (4.6-6.2) 10^6/uL Hgb 10.0 L (14.0-18.0) g/dL Hct 31.9 L (40.0-54.0) % MCV 85.8 (80-100) fL MCH 26.9 L (27.0-34.0) pg MCHC 31.3 L (33.0-35.0) g/dL Plt Count 210 (150-450) 10^3/uL Neut % (Auto) 80.2 H (42.2-75.2) % Lymph % (Auto) 10.3 L (20.5-50.1) % [place] % (Auto) 9.5 H (2-8) % Eos % (Auto) 0.0 L (1.0-3.0) % Baso % (Auto) 0.0 (0.0-1.0) % Sodium 136 (135-145) mmol/L Potassium 4.2 (3.6-5.0) mmol/L Chloride 106 (101-111) mmol/L Carbon Dioxide 24.0 (21.0-31.0) mmol/L Anion Gap 10.2 BUN 36 H (7-18) mg/dL Creatinine 1.1 (0.6-1.3) mg/dL Est Cr Clr Drug Dosing 54.25 mL/min Estimated GFR (MDRD) > 60 Glucose 114 H (74-105) mg/dL POC Glucose 117 H (83-110) mg/dl Calcium 8.7 (8.4-10.2) mg/dl // Range/Units 11:06 WBC (5.0-10.0) 10^3/uL RBC (4.6-6.2) 10^6/uL Hgb (14.0-18.0) g/dL Hct (40.0-54.0) % MCV (80-100) fL MCH (27.0-34.0) pg MCHC (33.0-35.0) g/dL Plt Count (150-450) 10^3/uL Neut % (Auto) (42.2-75.2) % Lymph % (Auto) (20.5-50.1) % [place] % (Auto) (2-8) % Eos % (Auto) (1.0-3.0) % Baso % (Auto) (0.0-1.0) % Sodium (135-145) mmol/L Potassium (3.6-5.0) mmol/L Chloride (101-111) mmol/L Carbon Dioxide (21.0-31.0) mmol/L Anion Gap BUN (7-18) mg/dL Creatinine (0.6-1.3) mg/dL Est Cr Clr Drug Dosing mL/min Estimated GFR (MDRD) Glucose (74-105) mg/dL POC Glucose 106 (83-110) mg/dl Calcium (8.4-10.2) mg/dl Med Orders - Current: Current Medications Albuterol/Ipratropium (Duoneb 3.0-0.5 Mg/3 Ml) 3 ml NEB Q4HRRT [facility] Last Admin: 12/19/16 08:06 Dose: 3 ml Aspirin (Aspirin) 81 mg PO Q48H [facility] Last Admin: 12/19/16 08:29 Dose: 81 mg Budesonide (Pulmicort) 0.5 mg INH BID@0700,1800 [facility] Calcium Carbonate/Glycine (Tums) 500 mg PO DAILY [facility] Last Admin: 12/19/16 08:30 Dose: 500 mg Carbidopa/Levodopa (Sinemet 25-250 Mg) 1 tab PO TIDMEALS [facility] Last Admin: 12/19/16 08:29 Dose: 1 tab Azithromycin 500 mg/ Sodium (Chloride) 250 mls @ 250 mls/hr IV Q24H [facility] Last Admin: 12/18/16 22:04 Dose: 250 mls/hr Ceftriaxone Sodium 1 gm/ (Sodium Chloride) 50 mls @ 100 mls/hr IV Q24H [facility] Last Admin: 12/18/16 21:19 Dose: 100 mls/hr Insulin Aspart (Novolog) 0 unit SUBCUT QIDACANDBED [facility] PRN Reason: Protocol Last Admin: 12/19/16 07:48 Dose: Not Given Lactulose (Cephulac) 10 gm PO DAILY [facility] Last Admin: 12/19/16 08:30 Dose: 10 gm Levothyroxine Sodium (Levothyroxine) 150 mcg PO ACBRK [facility] Last Admin: 12/19/16 05:50 Dose: 150 mcg Methylprednisolone Sodium Succinate (Solu-Medrol) 40 mg IVPUSH Q12H [facility] Last Admin: 12/19/16 05:51 Dose: 40 mg Metoprolol Succinate (Toprol Xl) 100 mg PO DAILY [facility] Last Admin: 12/19/16 08:29 Dose: 100 mg Montelukast Sodium (Singulair) 10 mg PO BEDTIME [facility] Last Admin: 12/18/16 22:50 Dose: 10 mg Sodium Chloride (Saline Flush) 10 ml FLUSH ASDIRECTED PRN PRN Reason: Keep Vein Open Last Admin: 12/19/16 08:33 Dose: 10 ml Tamsulosin HCl (Flomax) 0.4 mg PO BEDTIME [facility] Last Admin: 12/18/16 22:51 Dose: 0.4 mg Discontinued Medications Albuterol/Ipratropium (Duoneb 3.0-0.5 Mg/3 Ml) 3 ml NEB ONETIME ONE Stop: 12/16/16 16:16 Last Admin: 12/16/16 16:25 Dose: 3 ml Aspirin (Aspirin) 81 mg PO DAILY [facility] Budesonide (Pulmicort) 0.5 mg INH BID [facility] Last Admin: 12/18/16 22:51 Dose: 0.5 mg Carbidopa/Levodopa (Sinemet 25-100 Mg) 2 tab PO TID [facility] Last Admin: 12/16/16 22:32 Dose: Not Given Carbidopa/Levodopa (Sinemet 25-100 Mg) 1 tab PO TIDMEALS [facility] Last Admin: 12/16/16 22:32 Dose: Not Given Sodium Chloride (Normal Saline) 1,000 mls @ 999 mls/hr IV .BOLUS ONE Stop: 12/16/16 17:15 Last Admin: 12/16/16 16:25 Dose: 999 mls/hr Levofloxacin/Dextrose 500 mg/ (Premix) 100 mls @ 100 mls/hr IV ONETIME ONE Stop: 12/16/16 18:03 Last Admin: 12/16/16 17:49 Dose: 100 mls/hr Ceftriaxone Sodium 1 gm/ (Sodium Chloride) 50 mls @ 100 mls/hr IV Q24H [facility] Last Admin: 12/17/16 20:08 Dose: 100 mls/hr Lactulose (Chronulac) 10 gm PO DAILY [facility] Last Admin: 12/17/16 10:15 Dose: Not Given Methylprednisolone Sodium Succinate (Solu-Medrol) 125 mg IVPUSH ONETIME ONE Stop: 12/16/16 17:05 Last Admin: 12/16/16 17:49 Dose: 125 mg Methylprednisolone Sodium Succinate (Solu-Medrol) 40 mg IVPUSH Q8H [facility] Last Admin: 12/18/16 08:25 Dose: 40 mg Non-Formulary Medication (Ursodiol [Ursodiol]) 500 mg PO BID [facility] Last Admin: 12/16/16 22:32 Dose: Not Given Ursodiol 500 Mg Tab (Own Med) 0 each PO DAILY [facility]I Ursodilol 500mg (Own Med) 1 each PO DAILY TRUPTI - Exam General: Reports: alert, oriented Neck: Reports: supple Lungs: Reports: Normal respiratory effort, Decreased breath sounds Cardiovascular: Reports: Regular Rate, Regular Rhythm Abdomen: Reports: bowel sounds present, soft, no tenderness Skin: Reports: warm, dry, intact Neurological: Reports: no new focal deficit, other (very hard of hearing) *Q Meaningful Use (DIS) - VTE *Q VTE Criteria *Q: - Stroke *Q Stroke Criteria *Q: - AMI *Q AMI Criteria *Q:
[2016-12-19 12:08] VITALS: BP 138/69
[2016-12-19] MEDS ORDERED: Budesonide 0.5 MG/2 ML Neb Susp INH SCH (18:00)
--- NOTE | 2017-04-07 08:29 | EKG ---
12/16/2016- JORGE REYES - EKG done on a 76-year-old male showing sinus rhythm, heart rate of 78 beats per minute. Right bundle branch block. No acute ST wave changes. [facility] /[id number]
== END 2016-12-19 13:55 | disposition home or self-care (01) | DRG 190 ==
LOC: DL.ED 15:23 → DL.MS 18:11
PROVIDERS: ADMIT Internal Medicine; ATTEND Internal Medicine
DX: J44.0 Chronic obstructive pulmonary disease with (acute) lower respiratory infection (principal); J18.1 Lobar pneumonia, unspecified organism; J44.1 Chronic obstructive pulmonary disease with (acute) exacerbation; R73.9 Hyperglycemia, unspecified; G20 Parkinson's disease; R33.9 Retention of urine, unspecified; Z97.4 Presence of external hearing-aid; I10 Essential (primary) hypertension; N40.1 Benign prostatic hyperplasia with lower urinary tract symptoms; R33.8 Other retention of urine; E03.9 Hypothyroidism, unspecified; Z66 Do not resuscitate
CPT/HCPCS: 36415; 71010; 80053; 81001; 83605; 83880; 84484; 85025; 87040 ×2; 93005; 93010; 94640; 96361; 96365; 96375; 99285; J1956; J2930; J7030; J7050; 80048; 82962; 97161-GP; 97165-GO; A9270-GY; J0456; J0696; J1815-GY; J2920

== ENCOUNTER 2017-10-17 14:23 | Observation (INO) | payer MEDICARE, OTHER ==
[2017-10-17] MEDS ORDERED: Sodium Chloride 0.9% 10 ML Syringe FLUSH PRN ×2 (15:12→19:18)
[2017-10-17] MEDS ORDERED: Albuterol/Ipratropium 3.0-0.5 MG/3 ML Neb Soln NEB ONE (15:13)
[2017-10-17] MEDS ORDERED: methylPREDNISolone Sodium Succinate 125 MG/2 ML SDV IVPUSH ONE (15:13)
[2017-10-17 15:56] LABS: CHLORIDE,CL 97 mmol/L (101-111); SODIUM,NA 133 mmol/L (135-145)
[2017-10-17] MEDS ORDERED: Levofloxacin/Dextrose 5%-Water 500 MG in Premix Bag 1 BAG IV ONE (16:39)
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
[2017-10-17] MEDS ORDERED: Albuterol/Ipratropium 3.0-0.5 MG/3 ML Neb Soln NEB PRN (18:59)
[2017-10-17] MEDS ORDERED: Non-Formulary Medication 1 Each (Formoterol [Perforomist] 20 MCG) NEB SCH (19:00)
[2017-10-17] MEDS ORDERED: cefTRIAXone 1 GM in Sodium Chloride 0.9% 50 ML IV SCH (19:30)
[2017-10-17] MEDS ORDERED: Dextrose 5%-0.45% NaCl 1,000 ML IV SCH (19:30)
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
[2017-10-17] MEDS: guaiFENesin 600 MG Tab.ER PO SCH (20:24)
[2017-10-17] MEDS: Budesonide 0.5 MG/2 ML Neb Susp NEB SCH (20:24)
[2017-10-17] MEDS: Azithromycin 250 MG Tab PO SCH (20:25)
[2017-10-17] MEDS: Carbidopa/Levodopa 25-250 MG Tab PO SCH (20:25)
[2017-10-17] MEDS ORDERED: Tamsulosin 0.4 MG Cap.ER PO SCH (21:00)
[2017-10-17] MEDS ORDERED: cefTRIAXone 1 GM Vial IVPUSH SCH (21:00)
[2017-10-17] MEDS: Heparin Sodium 5,000 Units/ML Vial SUBCUT SCH (22:04)
[2017-10-18] MEDS: Albuterol/Ipratropium 3.0-0.5 MG/3 ML Neb Soln NEB SCH ×2 (00:27→07:08)
[2017-10-18] MEDS ORDERED: Levothyroxine 150 MCG Tab PO SCH (06:00)
[2017-10-18] MEDS: Heparin Sodium 5,000 Units/ML Vial SUBCUT SCH (06:51)
[2017-10-18 06:58] LABS: CHLORIDE,CL 101 mmol/L (101-111); SODIUM,NA 136 mmol/L (135-145)
[2017-10-18] MEDS: Budesonide 0.5 MG/2 ML Neb Susp NEB SCH (07:08)
[2017-10-18 07:55] VITALS: BP 125/73
[2017-10-18] MEDS ORDERED: predniSONE 20 MG Tab PO SCH (08:00)
[2017-10-18] MEDS ORDERED: Cholecalciferol (Vitamin D3) 400 Unit Tab PO SCH (09:00)
[2017-10-18] MEDS ORDERED: Aspirin 81 MG Tab.Chew PO SCH (09:00)
[2017-10-18] MEDS ORDERED: Montelukast 10 MG Tab PO SCH (09:00)
[2017-10-18] MEDS ORDERED: Calcium Carbonate/Vitamin D3 1250 MG-200 Unit Tab PO SCH (09:00)
[2017-10-18] MEDS ORDERED: Metoprolol Succinate 50 MG Tab.ER PO SCH (09:00)
[2017-10-18] MEDS ORDERED: Chlorthalidone 25 MG Tab PO SCH (09:00)
[2017-10-18] MEDS ORDERED: Multivitamins,Therapeutic Tab PO SCH (09:00)
[2017-10-18] MEDS ORDERED: Non-Formulary Medication 1 Each (Ursodiol [Ursodiol] 500 MG) PO SCH (09:00)
[2017-10-18] MEDS ORDERED: Sertraline 50 MG Tab PO SCH (09:00)
[2017-10-18] MEDS ORDERED: Lactulose Soln 10 GM/15 ML 946 ML Bottle PO SCH (09:00)
[2017-10-18] MEDS: Carbidopa/Levodopa 25-250 MG Tab PO SCH (09:29)
[2017-10-18] MEDS: Azithromycin 250 MG Tab PO SCH (09:31)
[2017-10-18] MEDS: guaiFENesin 600 MG Tab.ER PO SCH (09:31)
--- NOTE | 2017-10-18 11:50 | PCM.DCSUM1 ---
Discharge Summary - Hospital Course Free Text/Narrative:: 76 M with PMH of COPD, hearing difficulty, hypertension who presents with SOB, generalized weakness of one day duration. # COPD exacerbation - continue LABA and inhaled steroid - will treat empirically for pneumonia, likely trigger - prednisone 50 mg daily for five days - COPD education # Community acquired pneumonia - fever + leucocytosis + cough - CXR clear - will treat empirically for pneumonia - augmentin + azithromycin # Hx of Parkinson's disease - continue sinemet # Hx of HTN - continue home BP meds # Generalized weakness - seen by PT/OT, at baseline - home health will follow - Discharge Data Discharge Date: 10/18/17 Discharge Disposition: Home, Self-Care 01 Condition: Good - Discharge Diagnosis/Problem(s) (1) COPD exacerbation SNOMED Code(s): 403226092 ICD Code: J44.1 - CHRONIC OBSTRUCTIVE PULMONARY DISEASE W (ACUTE) EXACERBATION Status: Acute Current Visit: Yes (2) Pneumonia SNOMED Code(s): 231082885 ICD Code: J18.9 - PNEUMONIA, UNSPECIFIED ORGANISM Status: Acute Current Visit: Yes Qualifiers: Pneumonia type: due to unspecified organism Laterality: left Lung location: lower lobe of lung Qualified Code(s): J18.1 - Lobar pneumonia, unspecified organism - Patient Summary/Data Consults: Consultations 10/18/17 09:40 OT Evaluation and Treatment [CONS] Routine PT Evaluation and Treatment [CONS] Routine - Patient Instructions Diet: Usual Diet as Tolerated, Regular Diet as Tolerated Activity: As Tolerated - Discharge Plan Prescriptions/Med Rec: Amoxicillin/Clavulanate K [Augmentin 875-125 MG] 1 tab PO BID 5 Days tablet Azithromycin 500 mg PO DAILY 3 Days tablet Prednisone [IJD: predniSONE] 50 mg PO WITHBREAKFAST 5 Days tablet Home Medications: Home Meds Albuterol/Ipratropium [DuoNeb 3.0-0.5 MG/3 ML] 3 ml NEB QID PRN 09/15/14 [ History] Budesonide [Pulmicort] 2 ml NEB BID 09/15/14 [History] Calcium Carbonate [Calcium] 600 mg PO DAILY 09/15/14 [History] Cyanocobalamin (Vitamin B-12) [Vitamin B-12] 1,000 mcg INJECT .MONTHLY 09/15/14 [History] Levothyroxine 150 mcg PO DAILY 09/15/14 [History] Metoprolol Succinate [Toprol Xl] 100 mg PO DAILY 09/15/14 [History] Multivitamin [Multivitamins] 1 tab PO DAILY 09/15/14 [History] Sertraline HCl 50 mg PO DAILY 09/15/14 [History] Tamsulosin HCl 0.4 mg PO BEDTIME 09/15/14 [History] Ursodiol 500 mg PO DAILY 09/15/14 [History] Aspirin 81 mg PO Q48H 06/17/15 [History] Montelukast [Singulair] 1 tab PO DAILY 05/21/16 [History] Carbidopa/Levodopa [Sinemet 25-250 mg] 1 tab PO TIDM 12/16/16 [History] Cholecalciferol (Vitamin D3) [Vitamin D3] 1,000 units PO DAILY 12/16/16 [History ] Lactulose [Chronulac] 15 ml PO DAILY 12/16/16 [History] Chlorthalidone 12.5 mg PO DAILY 10/17/17 [History] Formoterol [Perforomist] 20 mcg NEB BID 10/17/17 [History] Sodium Chloride [Saline Nasal [place]] 1 spray NASBOTH DAILY PRN 10/17/17 [History ] guaiFENesin [Mucinex] 600 mg PO DAILY 10/17/17 [History] Amoxicillin/Clavulanate K [Augmentin 875-125 MG] 1 tab PO BID 5 Days tablet 12/31 [Rx] Azithromycin 500 mg PO DAILY 3 Days tablet 10/18/17 [Rx] Prednisone [IJD: predniSONE] 50 mg PO WITHBREAKFAST 5 Days tablet 10/18/17 [Rx] Patient Handouts: Chronic Obstructive Pulmonary Disease, [id number], Acute Bronchitis, Adult, [id number], Prednisone tablets Referrals: Alethea Hamilton MD [Primary Care Provider] - - Discharge Summary/Plan Comment DC Time >30 min.: Yes - General Info Date of Service: 10/18/17 Admission Dx/Problem (Free Text: Admission Diagnosis/Problem Admission Diagnosis/Problem Chronic obstructive pulmonary disease with acute exacerbation Subjective Update: feels better today - Review of Systems General: Reports: No Symptoms HEENT: Reports: No Symptoms Pulmonary: Reports: No Symptoms Cardiovascular: Reports: No Symptoms Gastrointestinal: Reports: No Symptoms - Patient Data Vitals - Most Recent: Last Vital Signs Temp 36.3 C 10/18/17 07:00 Pulse 73 10/18/17 09:33 Resp 24 H 10/18/17 07:00 BP 125/73 10/18/17 09:33 Pulse Ox 100 10/18/17 07:00 Weight - Most Recent: 77.564 kg I&O - Last 24 hours: Intake & Output 10/17/17 10/18/17 10/18/17 22:59 06:59 14:59 Intake Total 1325 1210 Balance 1325 1210 Lab Results - Last 24 hrs: Laboratory Results - last 24 hr 10/18/17 10/18/17 Range/Units 06:12 06:12 WBC 10.2 H (5.0-10.0) 10^3/uL RBC 4.03 L (4.6-6.2) 10^6/uL Hgb 11.8 L (14.0-18.0) g/dL Hct 35.0 L (40.0-54.0) % MCV 86.8 (80-100) fL MCH 29.3 (27.0-34.0) pg MCHC 33.7 (33.0-35.0) g/dL Plt Count 181 (150-450) 10^3/uL Neut % (Auto) 82.4 H (42.2-75.2) % Lymph % (Auto) 8.5 L (20.5-50.1) % [place] % (Auto) 9.0 H (2-8) % Eos % (Auto) 0.0 L (1.0-3.0) % Baso % (Auto) 0.1 (0.0-1.0) % Add Manual Diff Yes Neutrophils % (Manual) 89 H (42-75) % Lymphocytes % (Manual) 5 L (20-50) % Monocytes % (Manual) 6 (2-8) % Atypical Lymphocytes Rare Sodium 136 (135-145) mmol/L Potassium 3.4 L (3.6-5.0) mmol/L Chloride 101 (101-111) mmol/L Carbon Dioxide 25.0 (21.0-31.0) mmol/L Anion Gap 13.4 BUN 21 H (7-18) mg/dL Creatinine 0.9 (0.6-1.3) mg/dL Est Cr Clr Drug Dosing 66.30 mL/min Estimated GFR (MDRD) > 60 Glucose 161 H (74-105) mg/dL Calcium 9.2 (8.4-10.2) mg/dl Med Orders - Current: Current Medications Albuterol/Ipratropium (Duoneb 3.0-0.5 Mg/3 Ml) 3 ml NEB QID PRN PRN Reason: Shortness of Breath Albuterol/Ipratropium (Duoneb 3.0-0.5 Mg/3 Ml) 3 ml NEB Q6HRRT [facility] Last Admin: 10/18/17 07:08 Dose: 3 ml Aspirin (Aspirin) 81 mg PO Q48H [facility] Last Admin: 10/18/17 09:55 Dose: 81 mg Azithromycin (Zithromax) 500 mg PO DAILY [facility] Last Admin: 10/18/17 09:31 Dose: 500 mg Budesonide (Pulmicort) 0.5 mg NEB BIDRT [facility] Last Admin: 10/18/17 07:08 Dose: 0.5 mg Calcium Carbonate (Calcium Carbonate/Vitamin D 1250 Mg-200 Unit) 1 tab PO DAILY [facility] Last Admin: 10/18/17 09:31 Dose: 1 tab Carbidopa/Levodopa (Sinemet 25-250 Mg) 1 tab PO TIDM [facility] Last Admin: 10/18/17 09:29 Dose: 1 tab Ceftriaxone Sodium (Rocephin) 1 gm IVPUSH Q24H [facility] Last Admin: 10/17/17 20:39 Dose: 1 gm Chlorthalidone (Chlorthalidone) 12.5 mg PO DAILY [facility] Last Admin: 10/18/17 09:55 Dose: 12.5 mg Cholecalciferol (Vitamin D3) 1,000 units PO DAILY [facility] Last Admin: 10/18/17 09:32 Dose: 1,000 units Guaifenesin (Mucinex) 600 mg PO DAILY [facility] Last Admin: 10/18/17 09:31 Dose: 600 mg Heparin Sodium (Porcine) (Heparin Sodium) 5,000 units SUBCUT Q8HR [facility] Last Admin: 10/18/17 06:51 Dose: 5,000 units Dextrose/Sodium Chloride (Dextrose 5%-1/2 Ns) 1,000 mls @ 75 mls/hr IV ASDIRECTED [facility] Last Admin: 10/17/17 20:26 Dose: 75 mls/hr Lactulose (Chronulac) 10 gm PO DAILY [facility] Last Admin: 10/18/17 10:54 Dose: Not Given Levothyroxine Sodium (Levothyroxine) 150 mcg PO ACBRK [facility] Last Admin: 10/18/17 06:51 Dose: 150 mcg Metoprolol Succinate (Toprol Xl) 100 mg PO DAILY [facility] Last Admin: 10/18/17 09:33 Dose: 100 mg Montelukast Sodium (Singulair) 10 mg PO DAILY [facility] Last Admin: 10/18/17 09:31 Dose: 10 mg Multivitamins (Thera) 1 each PO DAILY [facility] Last Admin: 10/18/17 09:29 Dose: 1 each Non-Formulary Medication (Formoterol [Perforomist]) 20 mcg NEB BID [facility] Non-Formulary Medication (Ursodiol [Ursodiol]) 500 mg PO DAILY [facility] Prednisone (Prednisone) 50 mg PO WITHBREAKFAST [facility] Last Admin: 10/18/17 09:30 Dose: 50 mg Sertraline HCl (Zoloft) 50 mg PO DAILY [facility] Last Admin: 10/18/17 09:31 Dose: 50 mg Sodium Chloride (Saline Flush) 10 ml FLUSH ASDIRECTED PRN PRN Reason: Keep Vein Open Sodium Chloride (Saline Flush) 10 ml FLUSH ASDIRECTED PRN PRN Reason: Keep Vein Open Tamsulosin HCl (Flomax) 0.4 mg PO BEDTIME [facility] Last Admin: 10/17/17 22:04 Dose: 0.4 mg Discontinued Medications Albuterol/Ipratropium (Duoneb 3.0-0.5 Mg/3 Ml) 3 ml NEB ONETIME ONE Stop: 10/17/17 15:14 Last Admin: 10/17/17 15:53 Dose: 3 ml Levofloxacin/Dextrose 500 mg/ (Premix) 100 mls @ 100 mls/hr IV ONETIME ONE Stop: 10/17/17 17:38 Last Infusion: 10/17/17 18:09 Dose: Infused Ceftriaxone Sodium 1 gm/ (Sodium Chloride) 50 mls @ 100 mls/hr IV Q24H [facility] Last Admin: 10/17/17 21:11 Dose: Not Given Methylprednisolone Sodium Succinate (Solu-Medrol) 125 mg IVPUSH ONETIME ONE Stop: 10/17/17 15:14 Last Admin: 10/17/17 15:57 Dose: 125 mg - Exam General: Reports: Alert, Oriented HEENT: Reports: Pupils Equal, Pupils Reactive, EOMI, Mucous Membr. Moist/[place] Neck: Reports: Supple Lungs: Reports: Clear to Auscultation, Normal Respiratory Effort Cardiovascular: Reports: Regular Rate, Regular Rhythm GI/Abdominal Exam: Normal Bowel Sounds, Soft, Non-Tender, No Organomegaly, No Distention, No Abnormal Bruit, No Mass, Pelvis Stable *Q Meaningful Use (DIS) - VTE *Q VTE Criteria *Q: - Stroke *Q Stroke Criteria *Q: - AMI *Q AMI Criteria *Q:
== END 2017-10-18 12:25 | disposition home health service (06) ==
LOC: DL.ED 14:23 → DL.MS 16:47 → UNDOADMOB 16:47 → INTOOBSV 16:47 → DL.MS 19:18
PROVIDERS: ADMIT Hospitalist; ATTEND Hospitalist
DX: J44.1 Chronic obstructive pulmonary disease with (acute) exacerbation (principal); J18.1 Lobar pneumonia, unspecified organism; I10 Essential (primary) hypertension; N40.0 Benign prostatic hyperplasia without lower urinary tract symptoms; G30.9 Alzheimer's disease, unspecified; F02.80 Dementia in other diseases classified elsewhere, unspecified severity, without behavioral disturbance, psychotic disturbance, mood disturbance, and anxiety; F41.9 Anxiety disorder, unspecified; F32.9 Major depressive disorder, single episode, unspecified; E03.9 Hypothyroidism, unspecified; G20 Parkinson's disease; K59.09 Other constipation; Z79.2 Long term (current) use of antibiotics; Z79.899 Other long term (current) drug therapy; Z79.82 Long term (current) use of aspirin; Z87.891 Personal history of nicotine dependence
CPT/HCPCS: 36415; 71045; 80048; 80053; 81001; 82150; 83605; 83690; 85025; 87040; 87081; 87430; 87804; 94640; 96365; 96372; 96375; 97162; 97166; 99284; A9270; G0378; J0696; J1644; J1956; J2930; J7042; 96374; 99285

== ENCOUNTER 2017-12-09 20:52 | Emergency (ER) | payer MEDICARE, OTHER ==
[2017-12-09 20:54] VITALS: BP 144/85
[2017-12-09] MEDS ORDERED: Diphtheria,Pertussis(Acell),Tetanus Vaccine 0.5 ML SDV IM ONE (21:16)
[2017-12-09 22:01] LABS: ANION GAP 12.7; CHLORIDE,CL 104 mmol/L (101-111); SODIUM,NA 140 mmol/L (135-145)
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
--- NOTE | 2017-12-12 12:35 | EKG ---
12/09/2017 - JORGE REYES - This 12-lead EKG shows normal sinus rhythm with ventricular trigeminy, right bundle-branch block. Nonspecific ST-T wave changes noted on the lateral leads. No significant ST elevation or ST depression noted on this 12-lead EKG. [facility] /[id number]
== END 2017-12-09 22:59 | disposition home or self-care (01) ==
LOC: DL.ED 20:52
DX: S01.01XA Laceration without foreign body of scalp, initial encounter (principal); I10 Essential (primary) hypertension; E03.9 Hypothyroidism, unspecified; Z23 Encounter for immunization; Z79.899 Other long term (current) drug therapy; Z79.82 Long term (current) use of aspirin; Z87.891 Personal history of nicotine dependence; Z86.69 Personal history of other diseases of the nervous system and sense organs; W19.XXXA Unspecified fall, initial encounter
CPT/HCPCS: 12001; 36415; 70450; 72125; 80053; 84484; 85025; 90471; 90715; 93005; 93010; 99283; 99284

== ENCOUNTER 2020-04-13 20:11 | Inpatient (IN) | payer MEDICARE, OTHER ==
--- NOTE | 2020-04-13 20:10 | PCM.SN.2 ---
- Free Text/Narrative Note: Called by family of Mr. Casillas. He has fallen three times at home today. Ambulance came to home to help get him up from floor. Per and family, has been falling, seems slightly confused. Has been incontinent of large amounts of dark, odorous urine; has been only incontinent. Feels warm to touch, but no temp taken. No cough. Not eating or drinking. Has had some weight loss. is unable to get him off the floor and keep up with the incontinence. Feels that at this point, he may need SNF placement. PMH: Parkinson's Disease. BPH. HTN. Primary biliary cirrhosis. COPD, on nocturnal oxygen; has [id number] history of smoking. Hypothyroidism. Cerebrovascular disease with cerebellar atrophy. Vitamin B12 deficiency, receives monthly B12 injection. Plan: Advised to take Mr. Casillas to ER for further evaluation. May be dehydrated, may have UTI? Needs to be seen and evaluated. Case discussed with Dr. Cadena and Dr. Powers.
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
[2020-04-13 21:43] LABS: ANION GAP 11.6 mEq/L (7-13); CHLORIDE,CL 102 mmol/L (98-107); SODIUM,NA 139 mmol/L (136-145)
--- NOTE | 2020-04-13 22:20 | CT ---
PROCEDURE INFORMATION: Exam: CT Head Without Contrast Exam date and time: 04/13/2020 9:46 PM Age: 79 years old Clinical indication: Other: Weakness; Additional info: Weak R/O stroke TECHNIQUE: Imaging protocol: Computed tomography of the head without contrast. Radiation optimization: All CT scans at this facility use at least one of these dose optimization techniques: automated exposure control; mA and/or kV adjustment per patient size (includes targeted exams where dose is matched to clinical indication); or iterative reconstruction. Other technique: STROKE PROTOCOL was implemented. COMPARISON: CT Head wo Cont 12/09/2017 9:25 PM FINDINGS: Brain: Moderate generalized atrophy with moderate periventricular white matter ischemic changes consistent with the patient's advanced age. No extra-axial fluid collections. Chronic prominence of the bilateral high frontal peripheral CSF spaces is unchanged, which may relate to generalized atrophy and compensatory prominence of the extra-axial CSF spaces, versus chronic hygromas. No evidence of acute intracranial hemorrhage. Calloway-white differentiation is well maintained. ASPECTS ([place] Stroke Program Early CT Score) is 10. No evidence of acute or subacute intracranial ischemia/infarct. Chronic encephalomalacia in the cerebellum involving the bilateral hemispheres and vermis suggesting areas of chronic infarct, unchanged from 12/09/2017. No intracranial mass lesions. No midline shift or herniation. Ventricles: Ventricles normal. Bones/joints: The calvarium and visualized facial bones are intact. Sinuses: Visualized paranasal sinuses are clear. Mastoid air cells: Visualized mastoid air cells are clear. Orbits: Visualized orbital contents demonstrate no evidence of acute abnormality. Vasculature: Mild calcific atherosclerosis is identified in the visualized proximal intracranial arterial segments. No asymmetric vascular hyperdensities suggestive of thrombosis are identified. Soft tissues: The scalp and visualized soft tissues demonstrate no acute abnormality. Other findings: The IACs are grossly normal. The sella is grossly normal. IMPRESSION: 1. No acute intracranial process. No intracranial hemorrhage. No significant change from 12/09/2017. 2. Atrophy consistent with the patient's advanced age. Prominence of the high bilateral frontal CSF spaces may be compensatory in nature related to generalized atrophy, versus chronic hygromas, unchanged from 12/09/2017. Chronic encephalomalacia in the cerebellum unchanged. 3. ASPECTS ([place] Stroke Program Early CT Score) is 10. 4. These findings initiated a critical results reporting process. An addendum will be issued at the time of clincian notification.
--- NOTE | 2020-04-13 22:35 | CT ---
PROCEDURE INFORMATION: Exam: CT Chest Without Contrast Exam date and time: 04/13/2020 9:46 PM Age: 79 years old Clinical indication: Other: Hematuria; Shortness of breath and other: Congestion TECHNIQUE: Imaging protocol: Computed tomography of the chest without contrast. Radiation optimization: All CT scans at this facility use at least one of these dose optimization techniques: automated exposure control; mA and/or kV adjustment per patient size (includes targeted exams where dose is matched to clinical indication); or iterative reconstruction. COMPARISON: No relevant prior studies available. FINDINGS: Lungs: No acute lung infiltrates. No pulmonary edema. A left upper lobe 3 cm bulla is noted. Pleural space: No pleural effusion. Heart: Coronary artery atherosclerosis. No pericardial effusion. Aorta: Atherosclerotic aorta without aneurysm or dissection. Lymph nodes: Unremarkable. No enlarged lymph nodes. Bones/joints: Unremarkable. No acute fracture. Soft tissues: Unremarkable. IMPRESSION: 1. No acute findings 2. Left upper lobe 3 cm bulla. 3. Coronary artery atherosclerotic disease. PROCEDURE INFORMATION: Exam: CT Abdomen And Pelvis Without Contrast Exam date and time: 04/13/2020 9:46 PM Age: 79 years old Clinical indication: Other: Hematuria; Shortness of breath and other: Congestion TECHNIQUE: Imaging protocol: Computed tomography of the abdomen and pelvis without contrast. Radiation optimization: All CT scans at this facility use at least one of these dose optimization techniques: automated exposure control; mA and/or kV adjustment per patient size (includes targeted exams where dose is matched to clinical indication); or iterative reconstruction. COMPARISON: No relevant prior studies available. FINDINGS: Liver: Normal. No mass. Gallbladder and bile ducts: Normal. No calcified stones. No ductal dilation. Pancreas: Normal. No ductal dilation. Spleen: Normal. No splenomegaly. Adrenals: Normal. No mass. Kidneys and ureters: Bilateral renal calculi at the ureteropelvic junction levels. Right-sided calculus approximately 12 x 6 mm. Left-sided calculus 13 x 9 mm. There is [id number] right hydronephrosis. There is mild left hydronephrosis. There is no significant para renal fatty stranding. Stomach and bowel: Unremarkable. No obstruction. No mucosal thickening. Appendix: No evidence of appendicitis. Intraperitoneal space: Unremarkable. No free air. No significant fluid collection. Vasculature: Atherosclerotic aorta. No aneurysm. Multiple bladder calculi are noted. Lymph nodes: Unremarkable. No enlarged lymph nodes. Bladder: Moreira catheter within the urinary bladder. Severe bladder wall thickening. Bladder wall measures up to 2.7 cm circumferentially. No gas within the bladder wall. Perivesicular fatty inflammation and stranding. Cannot exclude cystitis. Multiple bladder diverticulum are suggested. Reproductive: Unremarkable as visualized. Bones/joints: degenerative lumbar spine. No acute fracture. 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 Series 5, image 95. This is an incidental benign finding. Soft tissues: Unremarkable. IMPRESSION: 1. Bilateral renal calculi. Bilateral hydronephrosis right greater than left. Calculi seen at the ureteropelvic junction bilaterally. 2. Severe bladder wall thickening. Moreira catheter in place. Multiple bladder calculi. Multiple bladder diverticulum. Perivesicular pelvic fatty stranding suggesting cystitis.
--- NOTE | 2020-04-14 00:01 | PCM.SN.2 ---
- Free Text/Narrative Note: CT Scan of CAP revealed bilateral ureteral stones, as well as bladder stones. There is [id number] right hydronephrosis and mild left hydronephrosis. No evidence for acute pyelonephritis. Currently both [facility] and [facility] are on diversion for medical admissions. Images were sent to the [facility] PACs and reviewed by Dr. Chavez Nam of Urology. This case and findings were discussed with him. He felt that Mr. Casillas could remain here as he is making sufficient urine output. He suggested the followin. IV antibiotics and hydration. Continue Moreira catheter. 2. Monitor fever, white blood cell count and urine output. If any of these change significantly, earlier transfer can be considered. 3. He would see Mr. Casillas by telemed on Wednesday. 4. He would see Mr. Casillas on 04/17/20. Plan would be to remove the bladder stones and possibly place bilateral ureteral stents. He would plan to remove the renal calculi at a later date, unless there is evidence of increasing obstruction, i.e., falling urine output, fever, white count, etc. Dr. Nam agreed that the situation could go either way, for better or worse. However, as Jourdan is hemodynamically stable, with good urine output, without evidenced for acute renal failure or obstruction, then we can start treatment here and follow up as above. Dr. Nam's recommendations were discussed with Dr. Cadena and Dr. Powers. Mr. Casillas will be admitted as an acute inpatient and monitored as above. A message was left for Dorene Michaels RN regarding placement at [facility] next week. Will follow up with her on Wednesday.
[2020-04-14] MEDS ORDERED: Acetaminophen 325 MG Tab PO PRN (00:18)
[2020-04-14] MEDS ORDERED: Ondansetron 4 MG/2 ML SDV IVPUSH PRN (00:18)
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
[2020-04-14] MEDS ORDERED: Sodium Chloride 0.65% Nasal Spray 45 ML Bottle NASBOTH PRN (00:42)
[2020-04-14] MEDS ORDERED: Albuterol/Ipratropium 3.0-0.5 MG/3 ML Neb Soln NEB PRN (00:42)
[2020-04-14] MEDS ORDERED: Lactulose Soln 10 GM/15 ML 946 ML Bottle PO PRN (00:42)
[2020-04-14] MEDS: cefTRIAXone 1 GM in Sodium Chloride 0.9% 50 ML IV SCH (01:10)
[2020-04-14] MEDS: Lactated Ringers 1,000 ML IV SCH ×3 (01:10→21:35)
[2020-04-14 06:45] LABS: ANION GAP 11.5 mEq/L (7-13); CHLORIDE,CL 103 mmol/L (98-107); SODIUM,NA 141 mmol/L (136-145)
[2020-04-14] MEDS: Budesonide 0.5 MG/2 ML Neb Susp NEB SCH ×2 (08:36→20:35)
[2020-04-14] MEDS: Metoprolol Succinate 50 MG Tab.ER PO SCH (09:09)
[2020-04-14] MEDS: Carbidopa/Levodopa 25-250 MG Tab PO SCH ×3 (09:09→17:45)
[2020-04-14] MEDS: Chlorthalidone 25 MG Tab PO SCH (09:09)
[2020-04-14] MEDS: Levothyroxine 150 MCG Tab PO SCH (09:10)
[2020-04-14] MEDS: guaiFENesin 600 MG Tab.ER PO SCH (09:10)
[2020-04-14] MEDS: Calcium Carbonate 500 MG Tab.Chew PO SCH (09:10)
[2020-04-14] MEDS: Sertraline 50 MG Tab PO SCH (09:10)
[2020-04-14] MEDS: Cholecalciferol (Vitamin D3) 25 MCG Tab PO SCH (09:10)
--- NOTE | 2020-04-14 10:52 | PCM.PN ---
- General Info Date of Service: 04/14/20 Admission Dx/Problem (Free Text): Admission Diagnosis/Problem Admission Diagnosis/Problem Kidney stone/hydronephrosis/nocturia Subjective Update: Vinny is a 79-year-old male with past medical history significant for Parkinso n's Disease, BPH, HTN, COPD, on nocturnal oxygen, has [id number] history of smoking, Hypothyroidism, Vitamin B12 deficiency on monthly B12 injection was brought to the ED following multiple falls yesterday. He was found to have gross hematuria, bilateral renal calculi with bilateral hydronephrosis right greater than left. CT abdomen pelvis showed bilateral renal calculi with bilateral hydronephrosis right greater than left. Calculi seen at the ureteropelvic junction bilaterally. Multiple bladder stones noted with multiple bladder diverticulum. Perivascular pelvic fat stranding noted. Urologist was consulted and recommended IV hydration, monitor for fever, leukocytosis and urine output. Today patient seen and examined. Doing okay. Overnight events. No reported fever, chills. Hemoglobin holding stable. WBC this morning trended up elevated to 14. Had over thousand mL of urine output overnight Urine still bloody. Functional Status: Reports: Pain Controlled - Review of Systems General: Reports: No Symptoms HEENT: Reports: No Symptoms Pulmonary: Reports: No Symptoms Cardiovascular: Reports: No Symptoms Gastrointestinal: Reports: No Symptoms Genitourinary: Reports: No Symptoms Musculoskeletal: Reports: No Symptoms Skin: Reports: No Symptoms Neurological: Reports: No Symptoms Psychiatric: Reports: No Symptoms - Patient Data Vitals - Most Recent: Last Vital Signs Temp 97.8 F 04/14/20 08:00 Pulse 83 04/14/20 09:09 Resp 20 04/14/20 08:00 BP 125/94 H 04/14/20 09:09 Pulse Ox 94 L 04/14/20 08:36 Weight - Most Recent: 165 lb I&O - Last 24 Hours: Intake & Output 04/13/20 04/14/20 04/14/20 22:59 06:59 14:59 Intake Total 524 200 Output Total 1300 Balance -776 200 Lab Results Last 24 Hours: Laboratory Results - last 24 hr 04/13/20 04/13/20 04/13/20 Range/Units 21:14 21:14 21:14 WBC 13.3 H (5.0-10.0) 10^3/uL RBC 4.40 L (4.6-6.2) 10^6/uL Hgb 14.4 D (14.0-18.0) g/dL Hct 42.1 (40.0-54.0) % MCV 95.7 D (80-100) fL MCH 32.7 (27.0-34.0) pg MCHC 34.2 (33.0-35.0) g/dL Plt Count 204 (150-450) 10^3/uL Neut % (Auto) 74.8 (42.2-75.2) % Lymph % (Auto) 8.9 L (20.5-50.1) % [place] % (Auto) 16.0 H (2-8) % Eos % (Auto) 0.1 L (1.0-3.0) % Baso % (Auto) 0.2 (0.0-1.0) % Sodium 139 (136-145) mmol/L Potassium 3.6 (3.5-5.1) mmol/L Chloride 102 (98-107) mmol/L Carbon Dioxide 29 (21-32) mmol/L Anion Gap 11.6 (7-13) mEq/L BUN 25 H (7-18) mg/dL Creatinine 1.19 (0.70-1.30) mg/dL Est Cr Clr Drug Dosing 52.82 mL/min Estimated GFR (MDRD) 59 BUN/Creatinine Ratio 21.0 (No establ ref range) Glucose 123 H (74-99) mg/dL Calcium 9.2 (8.5-10.1) mg/dL Phosphorus 3.1 (2.6-4.7) mg/dL Magnesium 1.8 (1.8-2.4) mg/dL Total Bilirubin 2.6 H (0.2-1.0) mg/dL AST 32 (15-37) U/L ALT 32 (16-63) U/L Alkaline Phosphatase 161 H (46-116) U/L Troponin I < 0.017 (0.000-0.056) ng/mL C-Reactive Protein 21.5 H (0.0-0.9) mg/dL B-Natriuretic Peptide 112 H (0-100) pg/ml Total Protein 7.9 (6.4-8.2) g/dL Albumin 3.1 L (3.4-5.0) g/dL Globulin 4.8 Albumin/Globulin Ratio 0.65 Urine Color (YELLOW) Urine Appearance (CLEAR) Urine pH (5.0-9.0) Ur Specific [place] (1.005-1.030) Urine Protein (NEGATIVE) Urine Glucose (UA) (NEGATIVE) Urine Ketones (NEGATIVE) Urine Occult Blood (NEGATIVE) Urine Nitrite (NEGATIVE) Urine Bilirubin (NEGATIVE) Urine Urobilinogen (0.2-1.0) mg/dL Ur Leukocyte Esterase (NEGATIVE) Urine RBC /HPF Urine WBC (0-5/HPF) /HPF Ur Epithelial Cells (NOT SEEN) /HPF Amorphous Sediment (NOT SEEN) /HPF Urine Bacteria (0-FEW/HPF) /HPF Urine Mucus (NOT SEEN) /LPF 04/13/20 04/14/20 04/14/20 Range/Units 21:26 06:02 06:02 WBC 14.1 H (5.0-10.0) 10^3/uL RBC 4.04 L (4.6-6.2) 10^6/uL Hgb 13.0 L (14.0-18.0) g/dL Hct 38.8 L (40.0-54.0) % MCV 96.0 (80-100) fL MCH 32.2 (27.0-34.0) pg MCHC 33.5 (33.0-35.0) g/dL Plt Count 195 (150-450) 10^3/uL Neut % (Auto) 75.5 H (42.2-75.2) % Lymph % (Auto) 9.3 L (20.5-50.1) % [place] % (Auto) 15.0 H (2-8) % Eos % (Auto) 0.1 L (1.0-3.0) % Baso % (Auto) 0.1 (0.0-1.0) % Sodium 141 (136-145) mmol/L Potassium 3.5 (3.5-5.1) mmol/L Chloride 103 (98-107) mmol/L Carbon Dioxide 30 (21-32) mmol/L Anion Gap 11.5 (7-13) mEq/L BUN 21 H (7-18) mg/dL Creatinine 1.05 (0.70-1.30) mg/dL Est Cr Clr Drug Dosing 54.21 mL/min Estimated GFR (MDRD) > 60 BUN/Creatinine Ratio (No establ ref range) Glucose 110 H (74-99) mg/dL Calcium 8.6 (8.5-10.1) mg/dL Phosphorus (2.6-4.7) mg/dL Magnesium (1.8-2.4) mg/dL Total Bilirubin (0.2-1.0) mg/dL AST (15-37) U/L ALT (16-63) U/L Alkaline Phosphatase (46-116) U/L Troponin I (0.000-0.056) ng/mL C-Reactive Protein (0.0-0.9) mg/dL B-Natriuretic Peptide (0-100) pg/ml Total Protein (6.4-8.2) g/dL Albumin (3.4-5.0) g/dL Globulin Albumin/Globulin Ratio Urine Color Dark yellow (YELLOW) Urine Appearance Turbid (CLEAR) Urine pH 7.0 (5.0-9.0) Ur Specific [place] >= 1.030 (1.005-1.030) Urine Protein >=300 H (NEGATIVE) Urine Glucose (UA) Negative (NEGATIVE) Urine Ketones Negative (NEGATIVE) Urine Occult Blood Large H (NEGATIVE) Urine Nitrite Negative (NEGATIVE) Urine Bilirubin Small H (NEGATIVE) Urine Urobilinogen 2.0 H (0.2-1.0) mg/dL Ur Leukocyte Esterase Moderate H (NEGATIVE) Urine RBC 30-40 H /HPF Urine WBC >100 H (0-5/HPF) /HPF Ur Epithelial Cells Rare (NOT SEEN) /HPF Amorphous Sediment Few (NOT SEEN) /HPF Urine Bacteria Few (0-FEW/HPF) /HPF Urine Mucus Few H (NOT SEEN) /LPF Med Orders - Current: Current Medications Acetaminophen (Tylenol) 650 mg PO Q4H PRN PRN Reason: Pain (Mild 1-3)/fever Albuterol/Ipratropium (Duoneb 3.0-0.5 Mg/3 Ml) 3 ml NEB QID PRN PRN Reason: Shortness of Breath Last Admin: 04/14/20 08:35 Dose: 3 ml Documented by: Budesonide (Pulmicort) 0.5 mg NEB BID TRUPTI Last Admin: 04/14/20 08:36 Dose: 0.5 mg Documented by: Calcium Carbonate/Glycine (Tums) 500 mg PO DAILY [facility] Last Admin: 04/14/20 09:10 Dose: 500 mg Documented by: Carbidopa/Levodopa (Sinemet 25-250 Mg) 1.5 tab PO TIDMEALS [facility] Last Admin: 04/14/20 09:09 Dose: 1.5 tab Documented by: Chlorthalidone (Chlorthalidone) 12.5 mg PO DAILY [facility] Last Admin: 04/14/20 09:09 Dose: 12.5 mg Documented by: Cholecalciferol (Vitamin D3) 25 mcg PO DAILY [facility] Last Admin: 04/14/20 09:10 Dose: 25 mcg Documented by: Guaifenesin (Mucinex) 600 mg PO DAILY [facility] Last Admin: 04/14/20 09:10 Dose: 600 mg Documented by: Ceftriaxone Sodium 1 gm/ (Sodium Chloride) 50 mls @ 100 mls/hr IV Q24H [facility] Last Admin: 04/14/20 01:10 Dose: 100 mls/hr Documented by: Lactated Ringer's (Ringers, Lactated) 1,000 mls @ 100 mls/hr IV ASDIRECTED [facility] Last Admin: 04/14/20 01:10 Dose: 100 mls/hr Documented by: Lactulose (Chronulac) 10 gm PO DAILY PRN PRN Reason: Constipation Levothyroxine Sodium (Levothyroxine) 150 mcg PO DAILY [facility] Last Admin: 04/14/20 09:10 Dose: 150 mcg Documented by: Metoprolol Succinate (Toprol Xl) 100 mg PO DAILY [facility] Last Admin: 04/14/20 09:09 Dose: 100 mg Documented by: (Ursodiol [Ursodiol] (500 Mg)*Pt Own Med*) 500 mg PO BID [facility] Ondansetron HCl (Zofran) 4 mg IVPUSH Q6H PRN PRN Reason: Nausea/Vomiting (Formoterol [ Perforomist] 20 Mcg) *Pt Own Med* 0 each INH BID [facility] Sertraline HCl (Zoloft) 50 mg PO DAILY [facility] Last Admin: 04/14/20 09:10 Dose: 50 mg Documented by: Sodium Chloride ([place] Nasal [place]) 0 ml NASBOTH BID PRN PRN Reason: Nasal Dryness Tamsulosin HCl (Flomax) 0.4 mg PO BEDTIME TRUPTI - Exam Quality Assessment: DVT Prophylaxis General: Alert, Oriented HEENT: Pupils Equal, Pupils Reactive, EOMI, Mucous Membr. Moist/[place] Neck: Supple Lungs: Clear to Auscultation, Normal Respiratory Effort Cardiovascular: Regular Rate, Regular Rhythm GI/Abdominal Exam: Normal Bowel Sounds, Soft, Non-Tender, No Organomegaly, No Distention, No Abnormal Bruit, No Mass, Pelvis Stable (Male) Exam: No Hernia, Normal Inspection, Normal Prostate, Circumcised Back Exam: Normal Inspection, Full Range of Motion Extremities: Normal Inspection, Normal Range of Motion, Non-Tender, No Pedal Edema, Normal Capillary Refill Skin: Warm, Dry, Intact Wound/Incisions: Healing Well Neurological: No New Focal Deficit Psy/Mental Status: Alert, Normal Affect, Normal Mood Sepsis Event Note - Evaluation Sepsis Screening Result: No Definite Risk - Focused Exam Vital Signs: Vital Signs Temp Pulse Pulse Resp BP BP BP 04/14/20 09:09 83 125/94 H 04/14/20 08:36 117 H 04/14/20 08:00 97.8 F 83 20 106/57 L 04/14/20 00:18 98.7 F 127 H 16 170/74 H 155/88 H Pulse Ox Pulse Ox Pulse Ox 04/14/20 09:09 04/14/20 08:36 94 L 04/14/20 08:00 98 04/14/20 00:18 95 95 - Problem List & Annotations (1) Gross hematuria SNOMED Code(s): 589480454 Code(s): R31.0 - GROSS HEMATURIA Status: Acute Current Visit: Yes (2) UTI (urinary tract infection) SNOMED Code(s): 64766010 Code(s): N39.0 - URINARY TRACT INFECTION, SITE NOT SPECIFIED Status: Acute Current Visit: No Qualifiers: Urinary tract infection type: site unspecified Hematuria presence: with hematuria Qualified Code(s): N39.0 - Urinary tract infection, site not specified; R31.9 - Hematuria, unspecified (3) Leukocytosis SNOMED Code(s): 300368171, 101394084 Code(s): D72.829 - ELEVATED WHITE BLOOD CELL COUNT, UNSPECIFIED Status: Acute Current Visit: Yes (4) COPD (chronic obstructive pulmonary disease) SNOMED Code(s): 26730904 Code(s): J44.9 - CHRONIC OBSTRUCTIVE PULMONARY DISEASE, UNSPECIFIED Status: Acute Current Visit: No Qualifiers: COPD type: unspecified COPD Qualified Code(s): J44.9 - Chronic obstructive pulmonary disease, unspecified (5) Multiple falls SNOMED Code(s): 970687027 Code(s): R29.6 - REPEATED FALLS Status: Chronic Current Visit: No - Problem List Review Problem List Initiated/Reviewed/Updated: Yes - My Orders Last 24 Hours: My Active Orders 04/14/20 00:18 Bedrest Bedside Commode [RC] ASDIRECTED Oxygen Therapy [RC] PRN Urinary Catheter Assessment [RC] Vital Signs [RC] 00,04,08,12,16,20 PT Evaluation and Treatment [CONS] Routine Acetaminophen [TylenoL] 650 mg PO Q4H PRN Ondansetron [Zofran] 4 mg IVPUSH Q6H PRN Anticoagulation Contraindications VTE [AST] Per Unit Routine Resuscitation Status Routine 04/14/20 00:20 Notify Provider Vital Signs [RC] ASDIRECTED 04/14/20 00:26 VTE/DVT Education [RC] PER UNIT ROUTINE Vital Signs [RC] Q4H 04/14/20 00:27 Intake and Output [RC] QSHIFT 04/14/20 00:30 cefTRIAXone [Rocephin] 1 gm Sodium Chloride 0.9% [Normal Saline] 50 ml IV Q24H 04/14/20 00:42 Albuterol/Ipratropium [DuoNeb 3.0-0.5 MG/3 ML] 3 ml NEB QID PRN Lactulose [Chronulac] 10 gm PO DAILY PRN Sodium Chloride 0.65% [[place] Nasal [place]] 0 ml NASBOTH BID PRN 04/14/20 00:45 RT Aerosol Therapy [RC] ASDIRECTED Lactated Ringers [Ringers, Lactated] 1,000 ml IV ASDIRECTED 04/14/20 01:58 Communication Order [RC] PRN 04/14/20 Breakfast Regular Diet [DIET] 04/14/20 08:00 Carbidopa/Levodopa [Sinemet 25-250 mg] 1.5 tab PO TIDMEALS 04/14/20 09:00 Budesonide [Pulmicort] 0.5 mg NEB BID Calcium Carbonate [Tums] 500 mg PO DAILY Chlorthalidone 12.5 mg PO DAILY Cholecalciferol (Vitamin D3) [Vitamin D3] 25 mcg PO DAILY Levothyroxine 150 mcg PO DAILY Metoprolol Succinate [Toprol XL] 100 mg PO DAILY Sertraline [Zoloft] 50 mg PO DAILY guaiFENesin [Mucinex] 600 mg PO DAILY 04/14/20 10:06 C-REACTIVE PROTEIN [CHEM] Routine PROCALCITONIN [REF] Routine 04/14/20 10:30 Ursodiol [Ursodiol] 500 mg PO BID 04/14/20 21:00 Patient's Own Medication [Ptom] 0 each INH BID Tamsulosin [Flomax] 0.4 mg PO BEDTIME 04/15/20 07:00 BASIC METABOLIC PANEL,BMP [CHEM] DAILY CBC WITH AUTO DIFF [HEME] DAILY 04/16/20 07:00 BASIC METABOLIC PANEL,BMP [CHEM] DAILY CBC WITH AUTO DIFF [HEME] DAILY 04/17/20 07:00 BASIC METABOLIC PANEL,BMP [CHEM] DAILY CBC WITH AUTO DIFF [HEME] DAILY 04/18/20 07:00 BASIC METABOLIC PANEL,BMP [CHEM] DAILY CBC WITH AUTO DIFF [HEME] DAILY - Plan Plan:: #Bilateral ureteral stones with mild to moderate right hydronephrosis and mild left hydronephrosis #Gross hematuria due to above -CT CAP revealed bilateral ureteral stones, as well as bladder stones and [id number] right hydronephrosis and mild left hydronephrosis -Continue to follow urology recommendation below -IV antibiotics and hydration. Continue [place] catheter. -Monitor fever, white blood cell count and urine output. If any of these change significantly, earlier transfer can be considered. -He would see Mr. Casillas by telemed on Wednesday. -He would see Mr. Casillas on 04/17/20. Plan would be to remove the bladder stones and possibly place bilateral ureteral stents. He would plan to remove the renal calculi at a later date. -Monitor vitals -Monitor urine output -Urine culture -Continue IV ceftriaxone -Monitor H&H -Transfuse with packed red blood cells if hemoglobin below 8 -Daily CBC and BMP #Leukocytosis likely reactive versus possible UTI -CRP elevated -Daily CBC -Procalcitonin -Continue empiric antibiotics #Multiple falls -This is mechanical fall due to Parkinson's disease -Fall precaution -Physical therapy and Occupational Therapy #Parkinson's Disease -Continue home medication #HTN -Within acceptable limits -Home medication #BPH -Continue home medication #COPD, on nocturnal oxygen -Not in exacerbation -Continue home medication #Hypothyroidism -Continue home medication #Regular diet #DNR/DNI
[2020-04-14] MEDS ORDERED: Furosemide 20 MG/2 ML VIAL IVPUSH SCH (11:15)
[2020-04-14] MEDS: Tamsulosin 0.4 MG Cap.ER PO SCH (20:34)
[2020-04-14] MEDS: LORazepam 2 MG/ML SDV IVPUSH PRN (22:51)
[2020-04-15] MEDS: Haloperidol Lactate 5 MG/ML SDV IM PRN (00:01)
[2020-04-15] MEDS: cefTRIAXone 1 GM in Sodium Chloride 0.9% 50 ML IV SCH (00:10)
[2020-04-15 03:25] LABS: ANION GAP 8.7 mEq/L (7-13); CHLORIDE,CL 104 mmol/L (98-107); SODIUM,NA 141 mmol/L (136-145)
[2020-04-15] MEDS ORDERED: Potassium Chloride 10 MEQ in Premix Bag 4 BAG IV ONE (08:22)
[2020-04-15] MEDS ORDERED: Potassium Chloride 20 MEQ in Premix Bag 2 BAG IV ONE (08:25)
[2020-04-15] MEDS: Lactated Ringers 1,000 ML IV SCH ×2 (08:40→18:41)
[2020-04-15] MEDS: Cholecalciferol (Vitamin D3) 25 MCG Tab PO SCH (08:43)
[2020-04-15] MEDS: Chlorthalidone 25 MG Tab PO SCH (08:43)
[2020-04-15] MEDS: Calcium Carbonate 500 MG Tab.Chew PO SCH (08:44)
[2020-04-15] MEDS: Metoprolol Succinate 50 MG Tab.ER PO SCH (08:44)
[2020-04-15] MEDS: guaiFENesin 600 MG Tab.ER PO SCH (08:44)
[2020-04-15] MEDS: Carbidopa/Levodopa 25-250 MG Tab PO SCH ×3 (08:44→17:08)
[2020-04-15] MEDS: Sertraline 50 MG Tab PO SCH (08:44)
[2020-04-15] MEDS: Levothyroxine 150 MCG Tab PO SCH (08:44)
[2020-04-15] MEDS: Budesonide 0.5 MG/2 ML Neb Susp NEB SCH ×2 (08:46→20:33)
[2020-04-15] MEDS: Potassium Chloride 20 MEQ in Premix Bag 1 BAG IV SCH ×2 (09:50→12:32)
--- NOTE | 2020-04-15 10:04 | PCM.PN ---
- General Info Date of Service: 04/15/20 Admission Dx/Problem (Free Text): Admission Diagnosis/Problem Admission Diagnosis/Problem Kidney stone/hydronephrosis/nocturia Subjective Update: Vinny is a 79-year-old male with past medical history significant for Parkinso n's Disease, BPH, HTN, COPD, on nocturnal oxygen, has [id number] history of smoking, Hypothyroidism, Vitamin B12 deficiency on monthly B12 injection was brought to the ED following multiple falls yesterday. He was found to have gross hematuria, bilateral renal calculi with bilateral hydronephrosis right greater than left. CT abdomen pelvis showed bilateral renal calculi with bilateral hydronephrosis right greater than left. Calculi seen at the ureteropelvic junction bilaterally. Multiple bladder stones noted with multiple bladder diverticulum. Perivascular pelvic fat stranding noted. Urologist was consulted and recommended IV hydration, monitor for fever, leukocytosis and urine output. Today patient seen and examined. Patient was agitated and acting confused overnight. Received Ativan and Haldol. This morning he appears to be doing okay. He is calm. Answering all questions appropriately. Vitals stable. Labs reviewed. Leukocytosis resolved. Hemoglobin stable. Has a decreased urine output overnight. No reported fever or chills. Functional Status: Reports: Pain Controlled - Review of Systems General: Reports: No Symptoms HEENT: Reports: No Symptoms Pulmonary: Reports: No Symptoms Cardiovascular: Reports: No Symptoms Gastrointestinal: Reports: No Symptoms Genitourinary: Reports: No Symptoms Musculoskeletal: Reports: No Symptoms Skin: Reports: No Symptoms Neurological: Reports: No Symptoms Psychiatric: Reports: No Symptoms - Patient Data Vitals - Most Recent: Last Vital Signs Temp 97.8 F 04/14/20 19:30 Pulse 89 04/15/20 08:56 Resp 16 04/14/20 19:30 BP 109/74 04/15/20 08:44 Pulse Ox 92 L 04/15/20 08:56 Weight - Most Recent: 165 lb I&O - Last 24 Hours: Intake & Output 04/14/20 04/15/20 04/15/20 22:59 06:59 14:59 Intake Total 1680 605 Output Total 1550 750 Balance 130 -145 Lab Results Last 24 Hours: Laboratory Results - last 24 hr 04/14/20 04/14/20 04/14/20 Range/Units 06:07 13:39 13:39 WBC (5.0-10.0) 10^3/uL RBC (4.6-6.2) 10^6/uL Hgb 13.0 L (14.0-18.0) g/dL Hct (40.0-54.0) % MCV (80-100) fL MCH (27.0-34.0) pg MCHC (33.0-35.0) g/dL Plt Count (150-450) 10^3/uL Neut % (Auto) (42.2-75.2) % Lymph % (Auto) (20.5-50.1) % [place] % (Auto) (2-8) % Eos % (Auto) (1.0-3.0) % Baso % (Auto) (0.0-1.0) % Sodium (136-145) mmol/L Potassium (3.5-5.1) mmol/L Chloride (98-107) mmol/L Carbon Dioxide (21-32) mmol/L Anion Gap (7-13) mEq/L BUN (7-18) mg/dL Creatinine (0.70-1.30) mg/dL Est Cr Clr Drug Dosing mL/min Estimated GFR (MDRD) Glucose (74-99) mg/dL Calcium (8.5-10.1) mg/dL C-Reactive Protein 25.4 H (0.0-0.9) mg/dL Blood Type A NEGATIVE Gel Antibody Screen Negative 04/14/20 04/14/20 04/15/20 Range/Units 13:39 18:59 03:01 WBC 8.8 (5.0-10.0) 10^3/uL RBC 3.53 L (4.6-6.2) 10^6/uL Hgb 11.7 L 11.4 L (14.0-18.0) g/dL Hct 39.6 L 34.3 L 33.8 L (40.0-54.0) % MCV 95.8 (80-100) fL MCH 32.3 (27.0-34.0) pg MCHC 33.7 (33.0-35.0) g/dL Plt Count 180 (150-450) 10^3/uL Neut % (Auto) 68.1 (42.2-75.2) % Lymph % (Auto) 15.8 L (20.5-50.1) % [place] % (Auto) 14.5 H (2-8) % Eos % (Auto) 1.4 (1.0-3.0) % Baso % (Auto) 0.2 (0.0-1.0) % Sodium (136-145) mmol/L Potassium (3.5-5.1) mmol/L Chloride (98-107) mmol/L Carbon Dioxide (21-32) mmol/L Anion Gap (7-13) mEq/L BUN (7-18) mg/dL Creatinine (0.70-1.30) mg/dL Est Cr Clr Drug Dosing mL/min Estimated GFR (MDRD) Glucose (74-99) mg/dL Calcium (8.5-10.1) mg/dL C-Reactive Protein (0.0-0.9) mg/dL Blood Type Gel Antibody Screen 04/15/20 Range/Units 03:01 WBC (5.0-10.0) 10^3/uL RBC (4.6-6.2) 10^6/uL Hgb (14.0-18.0) g/dL Hct (40.0-54.0) % MCV (80-100) fL MCH (27.0-34.0) pg MCHC (33.0-35.0) g/dL Plt Count (150-450) 10^3/uL Neut % (Auto) (42.2-75.2) % Lymph % (Auto) (20.5-50.1) % [place] % (Auto) (2-8) % Eos % (Auto) (1.0-3.0) % Baso % (Auto) (0.0-1.0) % Sodium 141 (136-145) mmol/L Potassium 2.7 L (3.5-5.1) mmol/L Chloride 104 (98-107) mmol/L Carbon Dioxide 31 (21-32) mmol/L Anion Gap 8.7 (7-13) mEq/L BUN 20 H (7-18) mg/dL Creatinine 1.00 (0.70-1.30) mg/dL Est Cr Clr Drug Dosing 56.92 mL/min Estimated GFR (MDRD) > 60 Glucose 100 H (74-99) mg/dL Calcium 8.8 (8.5-10.1) mg/dL C-Reactive Protein (0.0-0.9) mg/dL Blood Type Gel Antibody Screen Med Orders - Current: Current Medications Acetaminophen (Tylenol) 650 mg PO Q4H PRN PRN Reason: Pain (Mild 1-3)/fever Albuterol/Ipratropium (Duoneb 3.0-0.5 Mg/3 Ml) 3 ml NEB QID PRN PRN Reason: Shortness of Breath Last Admin: 04/14/20 08:35 Dose: 3 ml Documented by: Budesonide (Pulmicort) 0.5 mg NEB BID [facility] Last Admin: 04/15/20 08:46 Dose: 0.5 mg Documented by: Calcium Carbonate/Glycine (Tums) 500 mg PO DAILY [facility] Last Admin: 04/15/20 08:44 Dose: 500 mg Documented by: Carbidopa/Levodopa (Sinemet 25-250 Mg) 1.5 tab PO TIDMEALS [facility] Last Admin: 04/15/20 08:44 Dose: 1.5 tab Documented by: Chlorthalidone (Chlorthalidone) 12.5 mg PO DAILY [facility] Last Admin: 04/15/20 08:43 Dose: 12.5 mg Documented by: Cholecalciferol (Vitamin D3) 25 mcg PO DAILY [facility] Last Admin: 04/15/20 08:43 Dose: 25 mcg Documented by: Furosemide (Lasix) 20 mg IVPUSH ONETIME [facility] Last Admin: 04/14/20 12:05 Dose: 20 mg Documented by: Guaifenesin (Mucinex) 600 mg PO DAILY [facility] Last Admin: 04/15/20 08:44 Dose: 600 mg Documented by: Haloperidol Lactate (Haldol) 5 mg IM Q6H PRN PRN Reason: Agitation Last Admin: 04/15/20 00:01 Dose: 5 mg Documented by: Ceftriaxone Sodium 1 gm/ (Sodium Chloride) 50 mls @ 100 mls/hr IV Q24H [facility] Last Admin: 04/15/20 00:10 Dose: 100 mls/hr Documented by: Lactated Ringer's (Ringers, Lactated) 1,000 mls @ 100 mls/hr IV ASDIRECTED [facility] Last Admin: 04/15/20 08:40 Dose: 100 mls/hr Documented by: Potassium Chloride 20 meq/ (Premix) 100 mls @ 50 mls/hr IV Q2H [facility] Stop: 04/15/20 12:59 Last Admin: 04/15/20 09:50 Dose: 50 mls/hr Documented by: Lactulose (Chronulac) 10 gm PO DAILY PRN PRN Reason: Constipation Levothyroxine Sodium (Levothyroxine) 150 mcg PO ACBREAKFAST [facility] Lorazepam (Ativan) 2 mg IVPUSH Q4H PRN PRN Reason: Agitation Last Admin: 04/14/20 22:51 Dose: 2 mg Documented by: Metoprolol Succinate (Toprol Xl) 100 mg PO DAILY [facility] Last Admin: 04/15/20 08:44 Dose: 100 mg Documented by: (Ursodiol [Ursodiol] (500 Mg)*Pt Own Med*) 500 mg PO BID [facility] Last Admin: 04/14/20 20:34 Dose: 500 mg Documented by: Ondansetron HCl (Zofran) 4 mg IVPUSH Q6H PRN PRN Reason: Nausea/Vomiting (Formoterol [ Perforomist] 20 Mcg) *Pt Own Med* 0 each INH BID [facility] Last Admin: 04/15/20 08:54 Dose: 1 each Documented by: Quetiapine Fumarate (Seroquel) 25 mg PO BEDTIME [facility] Sertraline HCl (Zoloft) 50 mg PO DAILY [facility] Last Admin: 04/15/20 08:44 Dose: 50 mg Documented by: Sodium Chloride (Pepin Nasal Ora) 0 ml NASBOTH BID PRN PRN Reason: Nasal Dryness Tamsulosin HCl (Flomax) 0.4 mg PO BEDTIME [facility] Last Admin: 04/14/20 20:34 Dose: 0.4 mg Documented by: Discontinued Medications Potassium Chloride 10 meq/ (Premix) 0 mls @ 100 mls/hr IV ONETIME ONE Stop: 04/15/20 08:23 Last Admin: 04/15/20 09:10 Dose: Not Given Documented by: Levothyroxine Sodium (Levothyroxine) 150 mcg PO DAILY [facility] Last Admin: 04/15/20 08:44 Dose: 150 mcg Documented by: - Exam Quality Assessment: DVT Prophylaxis General: Alert, Oriented HEENT: Pupils Equal, Pupils Reactive, EOMI, Mucous Membr. Moist/[place] Neck: Supple Lungs: Clear to Auscultation, Normal Respiratory Effort Cardiovascular: Regular Rate, Regular Rhythm GI/Abdominal Exam: Normal Bowel Sounds, Soft, Non-Tender, No Organomegaly, No Distention, No Abnormal Bruit, No Mass, Pelvis Stable (Male) Exam: No Hernia, Normal Inspection, Normal Prostate, Circumcised Back Exam: Normal Inspection, Full Range of Motion Extremities: Normal Inspection, Normal Range of Motion, Non-Tender, No Pedal Edema, Normal Capillary Refill Skin: Warm, Dry, Intact Wound/Incisions: Healing Well Neurological: No New Focal Deficit Psy/Mental Status: Alert, Normal Affect, Normal Mood Sepsis Event Note - Evaluation Sepsis Screening Result: No Definite Risk - Focused Exam Vital Signs: Vital Signs Pulse Pulse BP Pulse Ox Pulse Ox 04/15/20 08:56 89 92 L 04/15/20 08:44 80 109/74 04/15/20 00:18 95 - Problem List & Annotations (1) Gross hematuria SNOMED Code(s): 909488235 Code(s): R31.0 - GROSS HEMATURIA Status: Acute Current Visit: Yes (2) UTI (urinary tract infection) SNOMED Code(s): 23272898 Code(s): N39.0 - URINARY TRACT INFECTION, SITE NOT SPECIFIED Status: Acute Current Visit: No Qualifiers: Urinary tract infection type: site unspecified Hematuria presence: with hematuria Qualified Code(s): N39.0 - Urinary tract infection, site not specified; R31.9 - Hematuria, unspecified (3) Leukocytosis SNOMED Code(s): 062860216, 322711876 Code(s): D72.829 - ELEVATED WHITE BLOOD CELL COUNT, UNSPECIFIED Status: Acute Current Visit: Yes (4) COPD (chronic obstructive pulmonary disease) SNOMED Code(s): 61952196 Code(s): J44.9 - CHRONIC OBSTRUCTIVE PULMONARY DISEASE, UNSPECIFIED Status: Acute Current Visit: No Qualifiers: COPD type: unspecified COPD Qualified Code(s): J44.9 - Chronic obstructive pulmonary disease, unspecified (5) Multiple falls SNOMED Code(s): 860372171 Code(s): R29.6 - REPEATED FALLS Status: Chronic Current Visit: No - Problem List Review Problem List Initiated/Reviewed/Updated: Yes - My Orders Last 24 Hours: My Active Orders 04/14/20 09:00 Budesonide [Pulmicort] 0.5 mg NEB BID Calcium Carbonate [Tums] 500 mg PO DAILY Chlorthalidone 12.5 mg PO DAILY Cholecalciferol (Vitamin D3) [Vitamin D3] 25 mcg PO DAILY Metoprolol Succinate [Toprol XL] 100 mg PO DAILY Sertraline [Zoloft] 50 mg PO DAILY guaiFENesin [Mucinex] 600 mg PO DAILY 04/14/20 10:30 Ursodiol [Ursodiol] 500 mg PO BID 04/14/20 11:15 Furosemide [Lasix] 20 mg IVPUSH ONETIME 04/14/20 13:39 PROCALCITONIN [REF] Routine 04/14/20 21:00 Patient's Own Medication [Ptom] 0 each INH BID Tamsulosin [Flomax] 0.4 mg PO BEDTIME 04/14/20 22:47 LORazepam [Ativan] 2 mg IVPUSH Q4H PRN 04/14/20 23:39 Haloperidol Lactate [Haldol] 5 mg IM Q6H PRN 04/15/20 09:00 Potassium Chloride [KCL 20 MEQ in Water 100 ML] 20 meq Premix Bag 1 bag IV Q2H 04/15/20 10:58 HEMOGLOBIN/HEMATOCRIT,HH [HEME] Routine 04/15/20 18:58 HEMOGLOBIN [HEME] Q8H 04/15/20 18:59 HEMATOCRIT [HEME] Q8H 04/15/20 21:00 QUEtiapine [SEROqueL] 25 mg PO BEDTIME 04/16/20 02:58 HEMOGLOBIN [HEME] Q8H 04/16/20 02:59 HEMATOCRIT [HEME] Q8H 04/16/20 06:00 Levothyroxine 150 mcg PO ACBREAKFAST 04/16/20 07:00 BASIC METABOLIC PANEL,BMP [CHEM] DAILY CBC WITH AUTO DIFF [HEME] DAILY 04/16/20 10:58 HEMOGLOBIN [HEME] Q8H 04/16/20 10:59 HEMATOCRIT [HEME] Q8H 04/16/20 18:58 HEMOGLOBIN [HEME] Q8H 04/16/20 18:59 HEMATOCRIT [HEME] Q8H 04/17/20 07:00 BASIC METABOLIC PANEL,BMP [CHEM] DAILY CBC WITH AUTO DIFF [HEME] DAILY 04/18/20 07:00 BASIC METABOLIC PANEL,BMP [CHEM] DAILY CBC WITH AUTO DIFF [HEME] DAILY - Plan Plan:: #Acute encephalopathy due to ongoing metabolic process -Im proved -Seroquel 25 mg qhs #Bilateral ureteral stones with mild to moderate right hydronephrosis and mild left hydronephrosis #Gross hematuria due to above -CT CAP revealed bilateral ureteral stones, as well as bladder stones and [id number] right hydronephrosis and mild left hydronephrosis -Continue to follow urology recommendation below -IV antibiotics and hydration. Continue [place] catheter. -Monitor fever, white blood cell count and urine output. If any of these change significantly, earlier transfer can be considered. -For review via telemed on Wednesday. -Follow up on 04/17/20. Plan would be to remove the bladder stones and possibly place bilateral ureteral stents -Monitor vitals -Monitor urine output -Continue IV ceftriaxone -Monitor H&H -Transfuse with packed red blood cells if hemoglobin below 8 -Daily CBC and BMP #Leukocytosis likely reactive versus possible UTI. Resolved -CRP elevated -Daily CBC -Procalcitonin -Continue Rocephin #Multiple falls -This is mechanical fall due to Parkinson's disease -Fall precaution -Physical therapy and Occupational Therapy #Parkinson's Disease -Continue home medication #HTN -Within acceptable limits -Home medication #BPH -Continue home medication #COPD, on nocturnal oxygen -Not in exacerbation -Continue home medication #Hypothyroidism -Continue home medication #Regular diet #DNR/DNI
[2020-04-15] MEDS ORDERED: Lactated Ringers 1,000 ML IV SCH (19:00)
[2020-04-15] MEDS: Tamsulosin 0.4 MG Cap.ER PO SCH (20:32)
[2020-04-15] MEDS ORDERED: QUEtiapine 25 MG Tab PO SCH (21:00)
[2020-04-16] MEDS: cefTRIAXone 1 GM in Sodium Chloride 0.9% 50 ML IV SCH (00:08)
[2020-04-16 03:43] LABS: ANION GAP 9.3 mEq/L (7-13); CHLORIDE,CL 106 mmol/L (98-107); SODIUM,NA 142 mmol/L (136-145)
[2020-04-16] MEDS ORDERED: Levothyroxine 150 MCG Tab PO SCH (06:00)
[2020-04-16] MEDS: Haloperidol Lactate 5 MG/ML SDV IM PRN (08:16)
[2020-04-16] MEDS: LORazepam 2 MG/ML SDV IVPUSH PRN (08:16)
[2020-04-16] MEDS: guaiFENesin 600 MG Tab.ER PO SCH (08:19)
[2020-04-16] MEDS: Chlorthalidone 25 MG Tab PO SCH (08:19)
[2020-04-16] MEDS: Metoprolol Succinate 50 MG Tab.ER PO SCH (08:19)
[2020-04-16] MEDS: Cholecalciferol (Vitamin D3) 25 MCG Tab PO SCH (08:19)
[2020-04-16] MEDS: Calcium Carbonate 500 MG Tab.Chew PO SCH (08:19)
[2020-04-16] MEDS: Sertraline 50 MG Tab PO SCH (08:20)
[2020-04-16] MEDS: Carbidopa/Levodopa 25-250 MG Tab PO SCH ×2 (08:27→11:28)
[2020-04-16] MEDS ORDERED: Potassium Chloride 10 MEQ in Premix Bag 1 BAG IV SCH (08:30)
[2020-04-16] MEDS: Budesonide 0.5 MG/2 ML Neb Susp NEB SCH (08:39)
[2020-04-16] MEDS ORDERED: oxyCODONE 5 MG Tab PO PRN (08:49)
[2020-04-16] MEDS ORDERED: Haloperidol Lactate 5 MG/ML SDV IM PRN (08:50)
[2020-04-16] MEDS ORDERED: Potassium Chloride 10 MEQ Tab.ER PO SCH (09:00)
--- NOTE | 2020-04-16 10:03 | PCM.DCSUM1 ---
Discharge Summary - Hospital Course Free Text/Narrative:: Vinny is a 79-year-old male with past medical history significant for Parkinson's Disease, BPH, HTN, COPD, on nocturnal oxygen, has [id number] history of smoking, Hypothyroidism, Vitamin B12 deficiency on monthly B12 injection was brought to the ED following multiple falls yesterday. He was found to have gross hematuria, bilateral renal calculi with bilateral hydronephrosis right greater than left. CT abdomen pelvis showed bilateral renal calculi with bilateral hydronephrosis right greater than left. Calculi seen at the ureteropelvic junction bilaterally. Multiple bladder stones noted with multiple bladder diverticulum. Perivascular pelvic fat stranding noted. Urologist was consulted and recommended IV hydration, monitor for fever, leukocytosis and urine output. Urology plan to see patient today on follow-up for further intervention. His hemoglobin remained stable during admission. There were no evidence of urinary obstruction. He had adequate output throughout admission. Hematuria appears to be improving though his urine is s till pink to red but hemoglobin remained stable. His stay was complicated by acute delirium. He was started on Seroquel with improvement. Patient was discharged to SNF in stable condition. He will be seen by neurology today for further evaluation and management of bilateral renal calculi and hydronephrosis. Diagnosis: Stroke: No - Discharge Data Discharge Date: 04/16/20 Discharge Disposition: DC/Tfer to SNF 03 Condition: Stable - Referral to Home Health Primary Care Physician: PCP None - Discharge Diagnosis/Problem(s) (1) Gross hematuria SNOMED Code(s): 579414588 ICD Code: R31.0 - GROSS HEMATURIA Status: Acute Current Visit: Yes (2) UTI (urinary tract infection) SNOMED Code(s): 53276621 ICD Code: N39.0 - URINARY TRACT INFECTION, SITE NOT SPECIFIED Status: Acute Current Visit: No Qualifiers: Urinary tract infection type: site unspecified Hematuria presence: with hematuria Qualified Code(s): N39.0 - Urinary tract infection, site not specified; R31.9 - Hematuria, unspecified (3) Leukocytosis SNOMED Code(s): 555829368, 200073610 ICD Code: D72.829 - ELEVATED WHITE BLOOD CELL COUNT, UNSPECIFIED Status: Acute Current Visit: Yes (4) COPD (chronic obstructive pulmonary disease) SNOMED Code(s): 57531534 ICD Code: J44.9 - CHRONIC OBSTRUCTIVE PULMONARY DISEASE, UNSPECIFIED Stat us: Acute Current Visit: No Qualifiers: COPD type: unspecified COPD Qualified Code(s): J44.9 - Chronic obstructive pulmonary disease, unspecified (5) Multiple falls SNOMED Code(s): 239389192 ICD Code: R29.6 - REPEATED FALLS Status: Chronic Current Visit: No - Patient Summary/Data Consults: Consultations 04/14/20 00:18 PT Evaluation and Treatment [CONS] Routine - Patient Instructions Diet: Regular Diet as Tolerated Activity: As Tolerated Driving: Do Not Drive Showering/Bathing: May Shower Notify Provider of: Fever, Increased Pain, Nausea and/or Vomiting - Discharge Plan *PRESCRIPTION DRUG MONITORING PROGRAM REVIEWED*: No *COPY OF PRESCRIPTION DRUG MONITORING REPORT IN PATIENT ELIS: No Prescriptions/Med Rec: Potassium Chloride [Klor-Con 10] 40 meq PO BID 5 Days #40 tab.er oxyCODONE 5 mg PO Q8H PRN 3 Days #9 tablet PRN Reason: Pain QUEtiapine [SEROquel] 50 mg PO BEDTIME #60 tablet Home Medications: Home Meds Albuterol/Ipratropium [DuoNeb 3.0-0.5 MG/3 ML] 3 ml NEB QID PRN 09/15/14 [History] Budesonide [Pulmicort] 2 ml NEB BID 09/15/14 [History] Calcium Carbonate [Calcium] 600 mg PO DAILY 09/15/14 [History] Cyanocobalamin (Vitamin B-12) [Vitamin B-12] 1,000 mcg INJECT .MONTHLY 09/15/14 [History] Levothyroxine 150 mcg PO DAILY 09/15/14 [History] Metoprolol Succinate [Toprol Xl] 100 mg PO DAILY 09/15/14 [History] Multivitamin [Multivitamins] 1 tab PO DAILY 09/15/14 [History] Sertraline HCl 50 mg PO DAILY 09/15/14 [History] Tamsulosin HCl 0.4 mg PO BEDTIME 09/15/14 [History] Ursodiol 500 mg PO BID 09/15/14 [History] Aspirin 81 mg PO Q48H 06/17/15 [History] Montelukast [Singulair] 1 tab PO BEDTIME 05/21/16 [History] Carbidopa/Levodopa [Sinemet 25-250 mg] 1.5 tab PO TIDM 12/16/16 [History] Cholecalciferol (Vitamin D3) [Vitamin D3] 1,000 units PO DAILY 12/16/16 [History] Lactulose [Chronulac] 15 ml PO DAILY PRN 12/16/16 [History] Chlorthalidone 12.5 mg PO DAILY 10/17/17 [History] Formoterol [Perforomist] 20 mcg NEB BID 10/17/17 [History] Sodium Chloride [Sal[place] Nasal [place]] 1 spray NASBOTH BID PRN 10/17/17 [History] guaiFENesin [Mucinex] 600 mg PO DAILY 10/17/17 [History] Potassium Chloride [Klor-Con 10] 40 meq PO BID 5 Days #40 tab.er 04/16/20 [Rx] QUEtiapine [SEROquel] 50 mg PO BEDTIME #60 tablet 04/16/20 [Rx] oxyCODONE 5 mg PO Q8H PRN 3 Days #9 tablet 04/16/20 [Rx] Referrals: PCP,None [Primary Care Provider] - - Discharge Summary/Plan Comment DC Time >30 min.: Yes - Patient Data Vitals - Most Recent: Last Vital Signs Temp 98.4 F 04/16/20 08:00 Pulse 74 04/16/20 08:42 Resp 20 04/16/20 08:00 BP 114/50 L 04/16/20 08:19 Pulse Ox 94 L 04/16/20 08:00 Weight - Most Recent: 165 lb I&O - Last 24 hours: Intake & Output 04/15/20 04/16/20 04/16/20 22:59 06:59 14:59 Intake Total 2417 655 Output Total 1250 1000 Balance 1167 -345 Lab Results - Last 24 hrs: Laboratory Results - last 24 hr 04/14/20 04/15/20 04/15/20 Range/Units 13:39 10:57 19:50 WBC (5.0-10.0) 10^3/uL RBC (4.6-6.2) 10^6/uL Hgb 12.3 L 11.7 L (14.0-18.0) g/dL Hct 36.6 L 35.4 L (40.0-54.0) % MCV (80-100) fL MCH (27.0-34.0) pg MCHC (33.0-35.0) g/dL Plt Count (150-450) 10^3/uL Neut % (Auto) (42.2-75.2) % Lymph % (Auto) (20.5-50.1) % [place] % (Auto) (2-8) % Eos % (Auto) (1.0-3.0) % Baso % (Auto) (0.0-1.0) % Sodium (136-145) mmol/L Potassium (3.5-5.1) mmol/L Chloride (98-107) mmol/L Carbon Dioxide (21-32) mmol/L Anion Gap (7-13) mEq/L BUN (7-18) mg/dL Creatinine (0.70-1.30) mg/dL Est Cr Clr Drug Dosing mL/min Estimated GFR (MDRD) Glucose (74-99) mg/dL Calcium (8.5-10.1) mg/dL Procalcitonin 0.15 H (<0.10) ng/mL 04/16/20 04/16/20 Range/Units 03:05 03:05 WBC 6.5 (5.0-10.0) 10^3/uL RBC 3.56 L (4.6-6.2) 10^6/uL Hgb 11.5 L (14.0-18.0) g/dL Hct 33.8 L (40.0-54.0) % MCV 94.9 (80-100) fL MCH 32.3 (27.0-34.0) pg MCHC 34.0 (33.0-35.0) g/dL Plt Count 195 (150-450) 10^3/uL Neut % (Auto) 63.5 (42.2-75.2) % Lymph % (Auto) 17.8 L (20.5-50.1) % [place] % (Auto) 14.3 H (2-8) % Eos % (Auto) 4.1 H (1.0-3.0) % Baso % (Auto) 0.3 (0.0-1.0) % Sodium 142 (136-145) mmol/L Potassium 3.3 L (3.5-5.1) mmol/L Chloride 106 (98-107) mmol/L Carbon Dioxide 30 (21-32) mmol/L Anion Gap 9.3 (7-13) mEq/L BUN 16 (7-18) mg/dL Creatinine 0.94 (0.70-1.30) mg/dL Est Cr Clr Drug Dosing 60.55 mL/min Estimated GFR (MDRD) > 60 Glucose 90 (74-99) mg/dL Calcium 7.8 L (8.5-10.1) mg/dL Procalcitonin (<0.10) ng/mL [facility] Results - Last 24 hrs: Microbiology 04/13/20 21:26 Urine Culture - Final Urine, Catheterized NO GROWTH AFTER 2 DAYS Med Orders - Current: Current Medications Acetaminophen (Tylenol) 650 mg PO Q4H PRN PRN Reason: Pain (Mild 1-3)/fever Last Admin: 04/16/20 05:44 Dose: 650 mg Documented by: Albuterol/Ipratropium (Duoneb 3.0-0.5 Mg/3 Ml) 3 ml NEB QID PRN PRN Reason: Shortness of Breath Last Admin: 04/14/20 08:35 Dose: 3 ml Documented by: Budesonide (Pulmicort) 0.5 mg NEB BID [facility] Last Admin: 04/16/20 08:39 Dose: 0.5 mg Documented by: Calcium Carbonate/Glycine (Tums) 500 mg PO DAILY [facility] Last Admin: 04/16/20 08:19 Dose: 500 mg Documented by: Carbidopa/Levodopa (Sinemet 25-250 Mg) 1.5 tab PO TIDMEALS [facility] Last Admin: 04/16/20 08:27 Dose: 1.5 tab Documented by: Chlorthalidone (Chlorthalidone) 12.5 mg PO DAILY [facility] Last Admin: 04/16/20 08:19 Dose: 12.5 mg Documented by: Cholecalciferol (Vitamin D3) 25 mcg PO DAILY [facility] Last Admin: 04/16/20 08:19 Dose: 25 mcg Documented by: Guaifenesin (Mucinex) 600 mg PO DAILY [facility] Last Admin: 04/16/20 08:19 Dose: 600 mg Documented by: Haloperidol Lactate (Haldol) 2.5 mg IM Q6H PRN PRN Reason: Agitation Ceftriaxone Sodium 1 gm/ (Sodium Chloride) 50 mls @ 100 mls/hr IV Q24H [facility] Last Infusion: 04/16/20 00:50 Dose: Infused Documented by: Lactated Ringer's (Ringers, Lactated) 1,000 mls @ 50 mls/hr IV ASDIRECTED [facility] Lactulose (Chronulac) 10 gm PO DAILY PRN PRN Reason: Constipation Levothyroxine Sodium (Levothyroxine) 150 mcg PO ACBREAKFAST [facility] Last Admin: 04/16/20 05:06 Dose: 150 mcg Documented by: Metoprolol Succinate (Toprol Xl) 100 mg PO DAILY [facility] Last Admin: 04/16/20 08:19 Dose: 100 mg Documented by: (Ursodiol [Ursodiol] (500 Mg)*Pt Own Med*) 500 mg PO BID [facility] Last Admin: 04/16/20 08:21 Dose: 500 mg Documented by: Ondansetron HCl (Zofran) 4 mg IVPUSH Q6H PRN PRN Reason: Nausea/Vomiting Oxycodone HCl (Oxycodone) 5 mg PO Q6H PRN PRN Reason: Pain (Formoterol [ Perforomist] 20 Mcg) *Pt Own Med* 0 each INH BID [facility] Last Admin: 04/16/20 08:39 Dose: 20 each Documented by: Potassium Chloride (Klor-Con 10) 40 meq PO BID [facility] Stop: 04/21/20 09:01 Quetiapine Fumarate (Seroquel) 50 mg PO BEDTIME [facility] Sertraline HCl (Zoloft) 50 mg PO DAILY [facility] Last Admin: 04/16/20 08:20 Dose: 50 mg Documented by: Sodium Chloride ([place] Nasal Randall) 0 ml NASBOTH BID PRN PRN Reason: Nasal Dryness Tamsulosin HCl (Flomax) 0.4 mg PO BEDTIME [facility] Last Admin: 04/15/20 20:32 Dose: 0.4 mg Documented by: Discontinued Medications Budesonide (Pulmicort) 0.5 mg NEB BID [facility] Last Admin: 04/15/20 08:46 Dose: 0.5 mg Documented by: Furosemide (Lasix) 20 mg IVPUSH ONETIME [facility] Last Admin: 04/14/20 12:05 Dose: 20 mg Documented by: Haloperidol Lactate (Haldol) 5 mg IM Q6H PRN PRN Reason: Agitation Last Admin: 04/16/20 08:16 Dose: 5 mg Documented by: Lactated Ringer's (Ringers, Lactated) 1,000 mls @ 100 mls/hr IV ASDIRECTED [facility] Last Infusion: 04/15/20 18:56 Dose: 50 mls/hr Documented by: Potassium Chloride 10 meq/ (Premix) 0 mls @ 100 mls/hr IV ONETIME ONE Stop: 04/15/20 08:23 Last Admin: 04/15/20 09:10 Dose: Not Given Documented by: Potassium Chloride 20 meq/ (Premix) 100 mls @ 50 mls/hr IV Q2H [facility] Stop: 04/15/20 12:59 Last Admin: 04/15/20 12:32 Dose: 50 mls/hr Documented by: Potassium Chloride 10 meq/ (Premix) 100 mls @ 100 mls/hr IV Q2H [facility] Stop: 04/16/20 13:29 Last Admin: 04/16/20 09:30 Dose: Not Given Documented by: Levothyroxine Sodium (Levothyroxine) 150 mcg PO DAILY [facility] Last Admin: 04/15/20 08:44 Dose: 150 mcg Documented by: Lorazepam (Ativan) 2 mg IVPUSH Q4H PRN PRN Reason: Agitation Last Admin: 04/16/20 08:16 Dose: 2 mg Documented by: Quetiapine Fumarate (Seroquel) 25 mg PO BEDTIME [facility] Last Admin: 04/15/20 20:32 Dose: 25 mg Documented by: *Q Meaningful Use (DIS) - VTE *Q VTE Anticoagulation Contraindications: Medical/Procedure Contrai
[2020-04-16 11:42] VITALS: BP 106/61; PULSE 96
[2020-04-16] MEDS ORDERED: QUEtiapine 25 MG Tab PO SCH (21:00)
== END 2020-04-16 12:08 | DRG 689 ==
LOC: DL.ED 20:11 → DL.MS 23:50
PROVIDERS: ADMIT Student in an Organized Health Care Education/Training Program; ATTEND Student in an Organized Health Care Education/Training Program
DX: N30.01 Acute cystitis with hematuria (principal); N20.0 Calculus of kidney; N13.6 Pyonephrosis; G93.41 Metabolic encephalopathy; H91.93 Unspecified hearing loss, bilateral; R31.0 Gross hematuria; J44.9 Chronic obstructive pulmonary disease, unspecified; R29.6 Repeated falls; G20 Parkinson's disease; N40.0 Benign prostatic hyperplasia without lower urinary tract symptoms; I10 Essential (primary) hypertension; F17.210 Nicotine dependence, cigarettes, uncomplicated; E03.9 Hypothyroidism, unspecified; Z66 Do not resuscitate; E53.8 Deficiency of other specified B group vitamins; Z20.828 Contact with and (suspected) exposure to other viral communicable diseases; N32.3 Diverticulum of bladder; H54.7 Unspecified visual loss; K59.09 Other constipation; Z79.890 Hormone replacement therapy; Z79.51 Long term (current) use of inhaled steroids; G30.9 Alzheimer's disease, unspecified; F02.80 Dementia in other diseases classified elsewhere, unspecified severity, without behavioral disturbance, psychotic disturbance, mood disturbance, and anxiety; F41.9 Anxiety disorder, unspecified; F32.9 Major depressive disorder, single episode, unspecified; Z98.49 Cataract extraction status, unspecified eye; Z87.01 Personal history of pneumonia (recurrent); Z87.440 Personal history of urinary (tract) infections; Z79.899 Other long term (current) drug therapy; Z79.82 Long term (current) use of aspirin
CPT/HCPCS: 36415; 51702; 70450; 71250; 74176; 80048; 80053; 81001; 83735; 83880; 84100; 84145; 84484; 85014; 85018; 85025; 86140; 86850; 86900; 86901; 87086; 93005; 94640; 97162-GP; 99283; 99285-25; A9270-GY; J0696; J1630; J1940; J2060; J3480; J7050; J7120; J7620-GY; U0002